=== PATIENT | male | born 1980 | race Caucasian/White ===

== ENCOUNTER 2021-02-11 14:16 | Outpatient (REF) | payer OTHER, SELFPAY | END 2021-02-11 14:17 | disposition home or self-care (01) | LOC: HO.LAB 14:16 | PROVIDERS: Visit Provider Internal Medicine | DX: Z20.822 Contact with and (suspected) exposure to COVID-19 (principal) | CPT/HCPCS: C9803; U0003; U0005 ==

== ENCOUNTER 2021-06-19 11:45 | Outpatient (REF) | payer OTHER, SELFPAY ==
--- NOTE | ~2021-06-19 | XR_ITS ---
EXAMINATION: XR SHOULDER, LEFT CLINICAL INFORMATION: Pain COMPARISON: None TECHNIQUE: AP external rotation, Grashey, scapular Y, and axillary views of the left shoulder. FINDINGS: The bones and soft tissues are normal. No fracture. Glenohumeral and acromioclavicular alignment is anatomic with normal joint space. No abnormal soft tissue calcifications. XR/XR shoulder LT min 2V IMPRESSION: Normal left shoulder.
[2021-06-19 12:03] LABS: MANUAL DIFF FLAG NO
--- NOTE | 2021-06-19 12:06 | ECG_ITS ---
Test Reason : Z87.898 Blood Pressure : / mmHG Vent. Rate : 058 BPM Atrial Rate : 058 BPM P-R Int : 190 ms QRS Dur : 092 ms QT Int : 408 ms P-R-T Axes : 045 -28 025 degrees QTc Int : 400 ms Sinus bradycardia Otherwise normal ECG No previous ECGs available Referred By: Onur Tsai Electronically Signed By:Jose Anderson
[2021-06-19 12:40] LABS: Basophils Absolute Auto 0.1 X10*3/uL (0.0-0.2); Basophils Percent Auto 0.6 % (0-2); Eosinophils Absolute Auto 0.3 X10*3/uL (0.0-0.4); Eosinophils Percent Auto 3.5 % (0-4); Hematocrit 46.3 % (42.0-52.0); Hemoglobin 15.2 g/dl (14.0-18.0); Imm Gran Abs Auto 0.03 X10*3/uL (0.00-0.03); Imm Gran Pct Auto 0.4 % (0.0-0.4); Lymphocytes Absolute Auto 1.6 X10*3/uL (1.2-4.9); Lymphocytes Percent Auto 19.9 % (20-40); Mean Corpuscular HGB Conc 32.8 g/dl (31.0-36.0); Mean Corpuscular Hemoglobin 29.2 pg (27.0-33.0); Mean Corpuscular Volume 88.9 fL (80.0-98.0); Mean Platelet Volume 11.5 fL (9.4-12.4); Monocytes Absolute Auto 0.6 X10*3/uL (0.1-1.2); Monocytes Percent Auto 7.2 % (2-11); Neutrophils Absolute Auto 5.3 x10*3/uL (2.0-8.3); Neutrophils Percent Auto 68.4 % (45-73); Platelet Count 270 X10*3/uL (160-400); Red Blood Count 5.21 X10*6/uL (4.60-5.80); Red Cell Distribution Width 12.4 % (11.0-16.0); White Blood Count 7.8 X10*3/uL (4.8-10.8)
[2021-06-19 13:05] LABS: Alanine Aminotransferase 28 U/L (0-40); Alkaline Phosphatase 91 U/L (39-117); Anion Gap 11 (12-20); Aspartate Amino Transferase 20 U/L (5-37); Bilirubin Total 0.5 mg/dL (0.0-1.0); Blood Urea Nitrogen 10 mg/dL (9-16); Calcium 9.4 mg/dL (8.4-10.2); Carbon Dioxide 24 mmol/L (22-29); Chloride 105 mmol/L (96-108); Cholesterol 154 mg/dL; Estimated Glomerular Filt Rate > 60; Glucose Fasting 155 mg/dL (60-99); HDL Cholesterol 32 mg/dL; LDL Cholesterol Calculated 107 mg/dl; Potassium 4.1 mmol/L (3.3-5.1); Sodium 136 mmol/L (135-145); Total Protein 6.9 g/dL (6.5-8.0); Triglycerides 77 mg/dL
== END 2021-06-19 11:46 | disposition home or self-care (01) ==
LOC: HO.XRAY 11:45
PROVIDERS: PCP Nurse Practitioner Family; Visit Provider Nurse Practitioner Family
DX: M25.512 Pain in left shoulder (principal); E78.00 Pure hypercholesterolemia, unspecified; I10 Essential (primary) hypertension; Z87.898 Personal history of other specified conditions
CPT/HCPCS: 36415; 73030; 80053; 80061; 85025; 93005

== ENCOUNTER → 2022-01-16 11:20 | Outpatient (BNVA) | payer OTHER, SELFPAY | PROVIDERS: PCP Nurse Practitioner Family; Visit Provider Physician Assistant | DX: M75.82 Other shoulder lesions, left shoulder (principal) | CPT/HCPCS: 20610; J1040 ==

== ENCOUNTER 2022-02-16 15:17 | Outpatient (REF) | payer OTHER, SELFPAY ==
--- NOTE | ~2022-02-16 | XR_ITS ---
EXAMINATION: XR KNEES, AP STANDING BOTH XR KNEE, LEFT CLINICAL INFORMATION: Left knee pain. COMPARISON: None TECHNIQUE: Bilateral AP knee standing. Left knee 2 views. FINDINGS: Bilateral AP Knee: The medial and lateral compartment joint space is maintained normal. No bony erosive change is seen. There are no loose bodies. The soft tissues are normal. Left Knee: The patellofemoral compartment joint space is maintained normal. No bony erosive changes. No suprapatellar joint effusion or soft tissue swelling. XR/XR knee LT 2V IMPRESSION: 1. Unremarkable AP knee exam. 2. Unremarkable left knee exam.
--- NOTE | ~2022-02-16 | XR_ITS ---
EXAMINATION: XR KNEES, AP STANDING BOTH XR KNEE, LEFT CLINICAL INFORMATION: Left knee pain. COMPARISON: None TECHNIQUE: Bilateral AP knee standing. Left knee 2 views. FINDINGS: Bilateral AP Knee: The medial and lateral compartment joint space is maintained normal. No bony erosive change is seen. There are no loose bodies. The soft tissues are normal. Left Knee: The patellofemoral compartment joint space is maintained normal. No bony erosive changes. No suprapatellar joint effusion or soft tissue swelling. XR/XR knee standing BI IMPRESSION: 1. Unremarkable AP knee exam. 2. Unremarkable left knee exam.
== END 2022-02-16 15:18 | disposition home or self-care (01) ==
LOC: HO.HOSX 15:17
PROVIDERS: Visit Provider Physician Assistant
DX: M25.562 Pain in left knee (principal); M75.82 Other shoulder lesions, left shoulder
CPT/HCPCS: 20610; 73560; 73565; J1040

== ENCOUNTER 2022-02-26 18:13 | Outpatient (REF) | payer OTHER, SELFPAY | END 2022-02-26 18:14 | disposition home or self-care (01) | LOC: HO.MRI 18:13 | PROVIDERS: Visit Provider Physician Assistant | DX: S46.002A Unspecified injury of muscle(s) and tendon(s) of the rotator cuff of left shoulder, initial encounter (principal) | CPT/HCPCS: 73221 ==

== ENCOUNTER → 2022-04-08 15:49 | Outpatient (BNVA) | payer OTHER, SELFPAY | PROVIDERS: PCP Nurse Practitioner Family; Visit Provider Physician Assistant | DX: Z13.89 Encounter for screening for other disorder (principal) ==

== ENCOUNTER 2022-05-28 11:00 | Outpatient (RCR) | payer OTHER, SELFPAY ==
--- NOTE | 2022-05-01 15:12 | MHC.PT.EP ---
[facility] [place] Office [place] Office [place] Office [address] Hayden Harper [address] [phone] F: [phone] F: [phone] F: [phone] F: [phone] Physical Therapy Plan of Care Date of Evaluation: Date of Surgery: Diagnosis: CHONDROMALACIA LEFT KNEE Assessment: 41 YO MALE REF TO PT W LEFT KNEE CHONDROMALACIA, EXACERBATED IN A FALL IN 02/16/22. 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 Pt HAS Lt KNEE TERMINAL EXTENSION DEFICITS, DECR FLEXIBILITY IN HIPS/ HS, (+) PFPS W INFRAPATELLAR FAT PAD IRRIT, DECR PROPRIOCEPTION/ STABILIZATION LEFT LE , AND LUMBOPELVIC/ PROX LEs STRENGTH DEFICITS. FUNCTIONALLY, Pt IS LIMITED W STAIR MGMT, PROLONGED SITTING, PROLONGED STANDING/ WALKING/ SQUATTING, OR SITTING CROSS-LEGGED. Pt IS MOTIVATED FOR PT AND HE WOULD BENEFIT FROM PT TO ADDRESS THE ABOVE FINDINGS, DEV A HEP, IMPROVE LEFT KNEE JT MECH/ PERIPATELLAR SOFT TISSUE BALANCE, PAIN MGMT, AND SX MGMT TECHN. Frequency and Duration: The patient will be seen 2 x WK x 6 WKS Short Term Goals: *Pt'S LEFT KNEE PAIN DECR TO 2-3/10 *Pt INCREASE Lt KNEE ROM -> 0* EXTEN AND PROGRESSIVELY TO 120* FLEX *INCR FLEXINB IN PSOAS/ CALF MM TO IMPROVE EFFICIENCY OF GAIT ON LEVEL AND STAIRS *IMPROVE Pt'S SQUAT MECH Miter Cutter Goals: Pt INDEP W HEP PROGRESSION AND SELF-SX MGMT STRATEGIES IN 6 WKS Pt RESUME REG ADLs EVIDENT W IMPROVED LEFI SCORE BY 8-10 POINTS (AT EVAL 37/80 ) IN 6 WKS Pt INCR LUMBOPELVIC AND Lt LE STRENGTH BY 1 GRADE IN 6 WKS *Pt DEMON WFL SQUAT / BODY MECH W 3:3 SIMUL TASKS Treatment Plan: Modalities to reduce pain, spasms and effusion. Manual therapy to restore motion and function. Therapeutic exercise to improve strength and flexibility. Neuromuscular re-education for posture and balance. Therapeutic activities to return to functional activities of daily living. Electronically signed by: GINGER AGUIRRE PT Please sign and return to therapist. Thank you for your referral.
--- NOTE | 2022-07-06 09:06 | MHC.PT.DC ---
[facility] [place] Office [place] Office [place] Office [address] Hayden Harper 140 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 THE Pt DID NOT ATTEND HIS LAST FEW SCHED PT APPTS, AND, THEREFORE, A REASSESSMENT WAS NOT PERFORMED. Electronically signed by: GINGER AGUIRRE,PT Please sign and return to therapist. Thank you for your referral.
== END 2022-07-06 09:07 | disposition home or self-care (01) ==
LOC: HO.PT 11:00
PROVIDERS: PCP Nurse Practitioner Family; Visit Provider Physician Assistant
DX: M94.262 Chondromalacia, left knee (principal)
CPT/HCPCS: 97110; 97140; 97162

== ENCOUNTER → 2022-06-08 11:35 | Outpatient (BNVA) | payer OTHER, SELFPAY | PROVIDERS: PCP Nurse Practitioner Family; Visit Provider Physician Assistant | DX: Z13.89 Encounter for screening for other disorder (principal) ==

== ENCOUNTER 2022-07-02 13:51 | Outpatient (REF) | payer OTHER, SELFPAY ==
--- NOTE | ~2022-07-02 | MR_ITS ---
EXAMINATION: MR KNEE WITHOUT CONTRAST, LEFT CLINICAL INFORMATION: Left knee pain, osteoarthritis COMPARISON: Radiographs 02/16/2022 TECHNIQUE: MRI of the knee without contrast was performed using routine sequences on a high-field scanner. FINDINGS: MENISCI: Medial Meniscus: Intact Lateral Meniscus: Intact LIGAMENTS: Cruciate: Intact Collateral: Intact EXTENSOR MECHANISM: Intact ARTICULAR CARTILAGE/BONE: Patellofemoral Compartment: Normal Medial Compartment: Mild cartilage thinning and surface regular tearing along the lateral aspect of the weightbearing femoral condyle. Lateral Compartment: Normal JOINT FLUID AND BURSAE: Small joint effusion. MR/MR knee LT wo con IMPRESSION: 1. No meniscal tear. 2. Mild medial compartment osteoarthritis with a small joint effusion.
== END 2022-07-02 13:52 | disposition home or self-care (01) ==
LOC: HO.MRI 13:51
PROVIDERS: PCP Nurse Practitioner Family; Visit Provider Physician Assistant
DX: M17.12 Unilateral primary osteoarthritis, left knee (principal)
CPT/HCPCS: 73721

== ENCOUNTER 2022-07-20 07:22 | Emergency (ER) | payer OTHER, SELFPAY ==
[2022-07-20 07:34] VITALS: BP 116/74; BP 122/82; PULSE 70; PULSE 88; RESP 18; TEMP 36.7; O2SAT 95; O2SAT 97; BMI 35.3
[2022-07-20 07:39] VITALS: BP 116/74; PULSE 88; RESP 18; TEMP 36.7; O2SAT 97
--- NOTE | 2022-07-20 07:41 | ED_ITS ---
HPI - Back Pain/Injury General Chief Complaint: Back Pain/Injury Stated Complaint: L HIP PAIN WHILE LIFTING HEAVY OBJECT Time Seen by Provider: 07/20/22 07:28 Source: patient Mode of arrival: EMS History of Present Illness HPI Narrative: 41-year-old male with chronic back pain arrives via EMS after trying to lift up 2 lb box while working for [employer] and states that he felt a pinch in his left hip but denies any distal numbness/tingling but stated he felt like his leg might give out but it did not. Patient has left knee issues at baseline for which she is currently being worked up by orthopedics for. He recently had an MRI. Related Data Home Medications Medication Instructions Recorded Confirmed amoxicillin 500 mg capsule 500 mg PO TID 04/08/22 chlorhexidine gluconate 0.12 % 15 ml PO BID 04/08/22 mouthwash Previous Rx's Medication Instructions Recorded clotrimazole 1 % topical cream 1 appl topical BID PRN rash 2 12/09/21 (Antifungal (clotrimazole)) weeks #15 grams ketorolac 10 mg tablet 10 mg PO Q6H PRN pain 5 days #20 07/20/22 tabs Allergies Allergy/AdvReac Type Severity Reaction Status Date / Time bee pollen Allergy Intermediate Hives Verified 02/16/22 15:14 Review of Systems Review of Systems: Pertinent positives and negatives as stated in HPI PMFSH Past Medical History Source: nursing notes reviewed Medical History History of chest pain Surgical History History of cholecystectomy History of rotator cuff surgery Hx of tooth extraction Family History Family History Mother Lung cancer COPD (chronic obstructive pulmonary disease) Father Diabetes COPD (chronic obstructive pulmonary disease) Other Substance use disorder Social History Social History Housing: House Alcohol intake: current Alcohol intake frequency: a few times a month Alcohol type: beer Patient Tobacco Use Status: Current someday Tobacco user Tobacco use type: Cigar Smoked in Last 30 Days: Yes e-Cigarette/Vaping Use: Never Used Second Hand Smoke Exposure: No Substance Use Type: Other Substance Use Type Other:: cbd gummies Substance Use Frequency: Occasionally Last Used Substance: Days (ago) Any prior treatment program specific to substance use: No Advance Directives: No Advance Directives Information Provided: Yes service: No Current occupational status: employed 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 GENERAL: Well developed, well nourished, in no acute distress. HEAD: Normocephalic/atraumatic EYES: PERRLA, EOMI EARS: Ext canals without abnormality OROPHARYNX: no oral lesions noted, posterior pharynx clear LUNGS: Normal breath sounds. No adventitious sounds or accessory muscle use. SpO2<97> CARDIOVASCULAR: Regular rate and rhythm without noted murmurs ABDOMEN: Soft, non-tender, non-distended with bowel sounds. BACK: There is no midline vertebral tenderness or step-offs noted, there is specific tenderness over the left superior gluteus without obvious mass/erythema. MUSCULOSKELETAL: No tenderness, deformities, or effusions noted on gross inspection. EXTREMITIES: No cyanosis, clubbing or edema;LLE: Tenderness to palpation over the left greater trochanter extending down over the IT distribution, full range of motion with hip flexion, knee flexion (patient has a knee sleeve), ankle Dorsi and plantar flexion. SKIN: Inspection of the skin reveals no rashes NEUROLOGIC: Alert and oriented x 4. Strength and sensation to light touch were grossly intact x 4, DTRs intact. Medical Decision Making Medical Decision Making MDM Narrative: 41-year-old male with history and clinical presentation most consistent with possible muscle strain, no evidence to suggest sciatica or vertebral involvement, the package was 2 lb, there is no evidence of neurologic dysfunction and patient has some limited ROM due to underlying knee problem for which she is currently being evaluated. There is no evidence to suggest infection/abscess/cauda equina. Differential Diagnosis Please see the discussion above Discharge Plan Discharge Clinical Impression: Muscle strain of left gluteal region, Acute exacerbation of chronic low back pain Patient Disposition: Home, Self-Care Instructions: Muscle Strain (ED), Low Back Strain (ED), Lower Back Exercises (ED), Core Strengthening Exercises (ED) Additional Instructions: 1. Resume all home medications as prescribed. 2. Tylenol 1000 mg, orally, every 6 hours as needed for pain control. Do not exceed 4000 mg within 24 hours. I recommend that you take this medication with the prescribed Toradol. Also, recommend [id number] lidocaine patch to area of maximal tenderness as directed on the outside packaging. 3. Follow-up with your primary care provider as you will likely benefit from physical therapy. 4. Follow-up with orthopedics as scheduled, please call them for an appointment. Return to the ER for any worsening symptoms. Prescriptions: New ketorolac 10 mg tablet 10 mg PO Q6H PRN (Reason: pain) 5 Days Qty: 20 0RF Rx Instructions: Patient received Toradol in the emergency room. Discontinued ibuprofen 600 mg tablet PO No Action clotrimazole [Antifungal (clotrimazole)] 1 % cream 1 appl topical BID PRN (Reason: rash) 14 Days Qty: 15 0RF amoxicillin 500 mg capsule 500 mg PO TID chlorhexidine gluconate 0.12 % mouthwash 15 ml PO BID Stand Alone Forms: Work/School Release
--- NOTE | 2022-07-20 07:42 | PC.NURSE ---
Alert and oriented. Arrived by ems from work after reaching down to lift up a small 2lb bag. [place] suddent sharp pain in left hip and left knee almost gave out. Reports left knee pain has been going on for 20 years but hip pain is new. States had mri two weeks ago and is waiting for the results. VSS.
[2022-07-20] MEDS: Acetaminophen 325 MG TABLET 975 MG PO (08:04)
[2022-07-20] MEDS: Ketorolac Tromethamine 15 MG/ML VIAL IM (08:05)
[2022-07-20] MEDS: Lidocaine 4 % Patch ADH..PATCH 1 PATCH TRANSDERMA (08:05)
== END 2022-07-20 09:14 | disposition home or self-care (01) ==
PROVIDERS: Emergency Provider Student in an Organized Health Care Education/Training Program
DX: S79.912A Unspecified injury of left hip, initial encounter (principal); M25.552 Pain in left hip; M54.50 Low back pain, unspecified; F17.200 Nicotine dependence, unspecified, uncomplicated; X50.0XXA Overexertion from strenuous movement or load, initial encounter; X50.3XXA Overexertion from repetitive movements, initial encounter; X50.9XXA Other and unspecified overexertion or strenuous movements or postures, initial encounter; Y93.9 Activity, unspecified; Y92.9 Unspecified place or not applicable; Y99.0 Civilian activity done for income or pay; Z71.6 Tobacco abuse counseling; Z79.899 Other long term (current) drug therapy
CPT/HCPCS: 20610; 96372; 99284; J1040; J1885

== ENCOUNTER 2022-07-28 10:53 | Outpatient (REF) | payer OTHER, SELFPAY ==
--- NOTE | ~2022-07-28 | XR_ITS ---
EXAMINATION: XR HIP, LEFT CLINICAL INFORMATION: Pain COMPARISON: None available. TECHNIQUE: Two views of the left hip. FINDINGS: Bones and soft tissues are normal. No fracture. Alignment is anatomic. Hip joint space is maintained. XR/XR hip LT min 2V IMPRESSION: Normal left hip.
[2022-07-28 12:14] LABS: Estimated Average Glucose 140 mg/dL; Hemoglobin A1c % 6.5 %
[2022-07-28 12:15] LABS: Alanine Aminotransferase 30 U/L (0-40); Albumin Level 4.1 g/dL (3.5-5.0); Alkaline Phosphatase 100 U/L (39-117); Anion Gap 12 (12-20); Aspartate Amino Transferase 18 U/L (5-37); Bilirubin Total 0.8 mg/dL (0.0-1.0); Blood Urea Nitrogen 15 mg/dL (9-16); Calcium 9.4 mg/dL (8.4-10.2); Carbon Dioxide 25 mmol/L (22-29); Chloride 106 mmol/L (96-108); Estimated Glomerular Filt Rate > 60; Glucose Fasting 143 mg/dL (60-99); Potassium 4.4 mmol/L (3.3-5.1); Sodium 139 mmol/L (135-145); Total Protein 6.8 g/dL (6.5-8.0)
[2022-07-28 12:46] LABS: Folate 5.6 ng/mL (> or = 4.0); TSH reflex Free T4 0.72 uIU/mL (0.32-4.0); Vitamin B12 475 pg/mL (200-900); Vitamin D 25-OH Total 12.5 ng/mL (>30)
== END 2022-07-28 10:54 | disposition home or self-care (01) ==
LOC: HO.LAB 10:53
PROVIDERS: Visit Provider Nurse Practitioner Family
DX: M25.552 Pain in left hip (principal); R73.01 Impaired fasting glucose; Z13.29 Encounter for screening for other suspected endocrine disorder; M25.512 Pain in left shoulder; E55.9 Vitamin D deficiency, unspecified; E11.9 Type 2 diabetes mellitus without complications
CPT/HCPCS: 36415; 73502; 80053; 82306; 82607; 82746; 83036; 84443

== ENCOUNTER 2022-10-05 14:58 | Outpatient (AMB) | payer OTHER, SELFPAY ==
--- NOTE | 2022-10-05 15:09 | MHC.OFFVIS ---
Intake Vital Signs 10/05/22 15:10 Height 6 ft Weight 266 lb BMI 36.1 Intake Visit Reasons: OV-Left knee pain Intake Note: Ivan reyes 41 year old male presents today for?a follow up of left knee pain, last injection 07/20/22. Patient reports last injection provided relief for about a day. He has not been able to attend PT and is not able to attend with out a new order. Currently has steady pain that gets worse with bending of knee. Pain and tingling sensation that is located at the anterior aspect of knee. He has been out of work due to his pain for about a month. Finds no relief with Ibuprofen or Tylenol. Finds little relief with Advil. Finds support with knee brace. Allergies bee pollen Allergy (Intermediate, Verified 10/05/22 15:10) Hives HPI OV-Left knee pain HPI Details 41-year-old male who returns to the office today for a follow-up of left knee pain. He states he has steady pain and tingling sensation at the anterior aspect of his left knee which is aggravated with bending. He had his last injection on 07/20/22 which provided him relief for about a day. He has not been able to attend physical therapy as he missed an appt. He finds mild relief with Advil and no relief with ibuprofen or Tylenol. He finds support with his knee brace. He works at an [employer] in [place] and has been out of work due to his pain for about a month. [facility] Medical History Encounter to establish care History of chest pain Surgical History History of cholecystectomy History of rotator cuff surgery Hx of tooth extraction Family History Mother Lung cancer COPD (chronic obstructive pulmonary disease) Father Diabetes COPD (chronic obstructive pulmonary disease) Other Substance use disorder Social History Housing: House Alcohol intake: current Alcohol intake frequency: a few times a month Alcohol type: beer Patient Tobacco Use Status: Current someday Tobacco user Tobacco use type: Cigar e-Cigarette/Vaping Use: Never Used Second Hand Smoke Exposure: No Substance Use Type: Other service: No Current occupational status: employed 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 Retropatellar tenderness present. ROM full with crepitus. Negative steinmans. No ligamentous laxity. NVI. Assessment & Plan Assessment & Plan (1) Chondromalacia, left knee: Code(s): M94.262 - Chondromalacia, left knee (2) Patellofemoral arthritis of left knee: Code(s): M17.12 - Unilateral primary osteoarthritis, left knee Plan We discussed options which include referral back to physical therapy, pain management for geniculate injection and referral for gel injection. With his patellofemoral arthritis and anterior knee pain, I think that these are things that may help him with managing his discomfort along with activity modifications. He will return to work on October 09. He should avoid any type of repetitive kneeling, bending, pivoting or squatting type of motions for the next 4 weeks. He was also given a prescription of Celebrex to take twice a day for 2 weeks. He will see me back if he wishes to proceed with gel injection once approved. Orders: Orders PT Evaluation and Treatment Today M17.12 - Unilateral primary osteoarthritis, left knee, M94.262 - Chondromalacia, left knee Referrals Pain Management Referral M17.12 - Unilateral primary osteoarthritis, left knee, M94.262 - Chondromalacia, left knee Medications: New celecoxib (Celebrex) 200 mg PO BID 60 caps 3RF 30 days Patient Instructions: Scribed for Deborah Cervantes PA-C, by Aldo Gallegos medical insurance coding specialist, on 10/05/2022 at 3:00 PM EST. IDeborah PA-C, have personally reviewed and agree with the information entered by the scribe. Coding Level of Care Code Est Pt Level 3 (39470) Diagnoses Chondromalacia, left knee M94.262 Patellofemoral arthritis of left knee M17.12
[2022-10-05 15:10] VITALS: BMI 36.1
== END 2022-10-05 15:48 | disposition home or self-care (01) ==
PROVIDERS: PCP Nurse Practitioner Family; Visit Provider Physician Assistant
DX: M94.262 Chondromalacia, left knee (principal); M17.12 Unilateral primary osteoarthritis, left knee
CPT/HCPCS: 99213

== ENCOUNTER → 2022-10-05 14:58 | Outpatient (BNVA) | payer OTHER, SELFPAY | PROVIDERS: PCP Nurse Practitioner Family; Visit Provider Physician Assistant ==

== ENCOUNTER 2022-11-04 11:25 | Outpatient (AMB) | payer OTHER, SELFPAY ==
[2022-11-04 11:26] VITALS: BP 112/80; PULSE 61; O2SAT 98; BMI 35.4
--- NOTE | 2022-11-04 11:26 | A.OFFPC_ITS ---
Vital Signs 11/04/22 11:26 Height 6 ft Weight 261 lb BMI 35.4 BP 112/80 Blood Pressure Location Lt brachial Position Sitting Pulse 61 Pulse Source Pulse Oximeter Temp Source Skin Pulse Oximetry (%) 98 Oxygen Delivery Method Room Air Intake Visit Reasons: Neuropathy On Foot Intake Note: pt states care home right foot pain, neuropathy Environmental Director Required: No Allergies bee pollen Allergy (Intermediate, Verified 11/04/22 11:33) Hives Medication List - Last Reconciled 11/04/22 by GALILEA Henley blood sugar diagnostic (FreeStyle Lite Strips) test daily blood-glucose meter (FreeStyle Lite Meter kit) test daily celecoxib (Celebrex) 200 mg PO BID 30 days chlorhexidine gluconate 0.12% 15 mL PO BID cholecalciferol (vitamin D3) 50 mcg PO DAILY clotrimazole 1% (Antifungal (clotrimazole)) 1 appl topical BID PRN 2 weeks cyclobenzaprine 5 mg PO BEDTIME PRN ibuprofen 600 mg PO Q8H PRN lancets (FreeStyle Lancets) test daily metformin ER 500 mg PO DAILY Tobacco use date assessed: 11/04/22 Dental Screening Dental Screen Date: 11/04/22 Did you have a dental visit in the last 12 months?: Yes Did you have a dental problem in the last 6 months where you did not have access to dental care?: No Was dental information given to patient?: Patient has dentist HPI Neuropathy On Foot HPI Details Patient is a 41-year-old male who presents today for an office visit due to right foot pain on and off for a while now. Medical history significant for obesity, left knee pain, diabetes among others. Patient reports that about 12 years ago he did have right foot injury, he did not see provider then. He reports he went back to work, on feet for work. Reports towards the end of the day pain in right foot plantar aspect. Reports when pain is severe he has some numbness there as well. Pain is not to bad now. Reports taking ibuprofen with some improvement. Denies problems with his left foot. Reports that right foot pain improves with rest. Describes pain as sharp intermittent. [facility] Medical History Encounter to establish care History of chest pain Surgical History History of cholecystectomy History of rotator cuff surgery Hx of tooth extraction Family History Mother Lung cancer COPD (chronic obstructive pulmonary disease) Father Diabetes COPD (chronic obstructive pulmonary disease) Other Substance use disorder Social History Housing: House Alcohol intake: current Alcohol intake frequency: a few times a month Alcohol type: beer Patient Tobacco Use Status: Current someday Tobacco user Tobacco use type: Cigar e-Cigarette/Vaping Use: Never Used Second Hand Smoke Exposure: No Substance Use Type: Other service: No Current occupational status: employed Current occupation: [employer]/ [employer] Cognitive needs: No Hearing needs: No Vision needs: Yes (glasses) Questionnaire Thrive Questionnaire Date Thrive assessed: 07/24/22 AUDIT C Alcohol Use Questionnaire (AUDIT-C) 1. How often do you have a drink containing alcohol?: Monthly or less 2. How many drinks containing alcohol do you have on a typical day when you are drinking?: 1 or 2 3. How often do you have six or more drinks on one occasion?: Never Total Score: 1 Score Reviewed/Action Taken: No LAMAR-7 AMB Questionnaire LAMAR-7 Date LAMAR - 7 assessed: 09/10/22 Source: Developed by Drs. Patricio Chirinos, Silvia Trivedi, Mahad Mckinney and colleagues, with an educational davy from [employer]. Review of Systems Const Denies body aches, Denies chills, Denies fever(s) and Denies headache(s) Eyes Denies change in vision ENT Denies dizziness, Denies otalgia, Denies headache(s), Denies nasal discharge, Denies sinus pain and Denies sore throat Card Denies chest pain, Denies edema, Denies lightheadedness and Denies dyspnea Resp Denies cough and Denies dyspnea GI Denies abdominal pain Denies dysuria Musc Reports as per HPI, Denies myalgias, Reports arthralgias, Reports numbness and Denies tingling Skin/Breast Denies rash Neuro Denies dizziness, Denies headache(s), Reports numbness and Denies tingling Physical exam (Primary Care) Vital Signs: Last Vital Signs Pulse 61 11/04/22 11:26 BP 112/80 11/04/22 11:26 Pulse Ox 98 11/04/22 11:26 Oxygen Delivery Method Room Air 11/04/22 11:26 BMI result Body Mass Index 35.4 Tobacco/Smoking Status: Tobacco use Status Tobacco use date assessed 11/04/22 11/04/22 11:27 Patient Tobacco Use Status Current someday Tobacco 11/04/22 11:27 Tobacco use type Cigar 11/04/22 11:27 e-Cigarette/Vaping Use Never Used 11/04/22 11:27 Thrive Assessment: Date of Thrive Assessment Date Thrive assessed 07/24/22 11/04/22 11:27 Const General: cooperative and no acute distress Orientation/consciousness: patient oriented x3 HENMT Head: Yes normocephalic and Yes atraumatic Mouth: oropharynx normal and moist mucous membranes Throat: Yes posterior oropharynx normal Eyes General: appearance normal, both eyes and all related structures Neck Neck: Yes normal visual inspection and Yes full ROM Resp Effort & Inspection: normal respiratory effort and able to speak in complete sentences Auscultation: clear to auscultation bilaterally, no crackles, no rales, no rhonchi and no wheezes Cardio Rate: regular rate Rhythm: regular rhythm Heart sounds: S1 normal heart sound present and S2 normal heart sound present Peripheral pulses: dorsalis pedis present on the right GI Auscultation: normal bowel sounds Skin General skin exam: no rashes or lesions noted Neuro General: patient oriented x3 Gait exam (Neuro): Normal gait present Extrem Other: Right foot normal capillary refill General: Yes full ROM and No edema Right lower extremity: foot Details: normal capillary refill, tenderness Location: of the plantar foot Location: proximally and toes with normal ROM; no unusual warmth, no edema and no crepitus Assessment and Plan Assessment & Plan (1) Plantar fasciitis of right foot: Code(s): M72.2 - Plantar fascial fibromatosis Plan: Suspect plantar fasciitis of right foot. Patient is to continue ibuprofen 600 mg every 8 hours p.r.n.. Encouraged patient to do exercises with frozen ice bottle. Podiatry referral for an evaluation and treatment. Patient agreed with the plan. Keep appointment with PCP as scheduled or follow-up sooner as needed. Orders: Referrals Podiatry Referral M72.2 - Plantar fascial fibromatosis Coding Level of Care Code Est Pt Level 3 (58263) Diagnoses Plantar fasciitis of right foot M72.2
== END 2022-11-04 11:43 | disposition home or self-care (01) ==
PROVIDERS: PCP Nurse Practitioner Family; Visit Provider Nurse Practitioner Family
DX: M72.2 Plantar fascial fibromatosis (principal)
CPT/HCPCS: 99213

== ENCOUNTER 2022-11-05 14:55 | Outpatient (AMB) | payer OTHER, SELFPAY ==
--- NOTE | 2022-11-05 15:11 | A.OFFVIS_ITS ---
Intake Vital Signs 11/05/22 15:12 Height 6 ft Weight 261 lb BMI 35.4 Intake Visit Reasons: OV- LT knee gel monovisc injection Intake Note: Ivan a 41 year old male who presents today for a left knee monovisc injection. Allergies bee pollen Allergy (Intermediate, Verified 11/05/22 15:12) Hives HPI OV- LT knee gel monovisc injection HPI Details 41-year-old male who returns to the office today for a follow-up of left knee monovisc gel injection. [facility] Medical History Encounter to establish care History of chest pain Surgical History History of cholecystectomy History of rotator cuff surgery Hx of tooth extraction Family History Mother Lung cancer COPD (chronic obstructive pulmonary disease) Father Diabetes COPD (chronic obstructive pulmonary disease) Other Substance use disorder Social History Housing: House Alcohol intake: current Alcohol intake frequency: a few times a month Alcohol type: beer Patient Tobacco Use Status: Current someday Tobacco user Tobacco use type: Cigar e-Cigarette/Vaping Use: Never Used Second Hand Smoke Exposure: No Substance Use Type: Other service: No Current occupational status: employed 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 Retropatellar tenderness present. ROM full with crepitus. Negative steinmans. No ligamentous laxity. NVI. Office Procedures Joint Injection/Drain Joint Injection/Drain Details: Monovisc gel Primary Site: left knee Prep: site was prepped using aseptic technique, ethochloride spray was applied and injection warnings given Injected: in the joint Approach Used: anterolateral Procedure: The patient tolerated the procedure well Coding 94386 - Glenohumeral/Tronchanteric Bursa/Intraarticular Procedure code (CPT) selection complete Assessment & Plan Assessment & Plan (1) Chondromalacia, left knee: Code(s): M94.262 - Chondromalacia, left knee (2) Patellofemoral arthritis of left knee: Code(s): M17.12 - Unilateral primary osteoarthritis, left knee Plan We discussed options today which include monovisc injection. They did consent to move forward with the left knee monovisc injection, which was tolerated well. I recommended rest, ice and elevation and OTC anti-inflammatories PRN for discomfort. If symptoms persist or worsens over the next 6-8 weeks, patient will contact the office, otherwise follow-up as needed. Patient Instructions: Scribed for Deborah Cervantes PA-C, by Aldo Gallegos internist medical doctor md, on 11/05/2022 at 3:00 PM EST. I, Deborah Cervantes PA-C, have personally reviewed and agree with the information entered by the scribe. Coding Level of Care Code Procedure Only Diagnoses Chondromalacia, left knee M94.262 Patellofemoral arthritis of left knee M17.12 CPT Codes Coding - Joint 7: 35085 - Glenohumeral/Tronchanteric Bursa/Intraarticular ([id number])
[2022-11-05 15:12] VITALS: BMI 35.4
== END 2022-11-05 15:17 | disposition home or self-care (01) ==
PROVIDERS: PCP Nurse Practitioner Family; Visit Provider Physician Assistant
DX: M94.262 Chondromalacia, left knee (principal); M17.12 Unilateral primary osteoarthritis, left knee
CPT/HCPCS: 20610

== ENCOUNTER → 2022-11-05 14:55 | Outpatient (BNVA) | payer OTHER, SELFPAY | PROVIDERS: PCP Nurse Practitioner Family; Visit Provider Physician Assistant | DX: M17.12 Unilateral primary osteoarthritis, left knee (principal); M94.262 Chondromalacia, left knee | CPT/HCPCS: 20610; J7327 ==

== ENCOUNTER 2022-12-07 14:17 | Outpatient (AMB) | payer OTHER, SELFPAY ==
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
[2022-12-07 14:23] VITALS: BP 103/70; PULSE 65; RESP 14; O2SAT 98; BMI 35.7
== END 2022-12-07 14:41 | disposition home or self-care (01) ==
PROVIDERS: PCP Nurse Practitioner Family; Visit Provider Internal Medicine
DX: M25.562 Pain in left knee (principal); G89.29 Other chronic pain
CPT/HCPCS: 99204

== ENCOUNTER → 2022-12-07 14:17 | Outpatient (BNVA) | payer OTHER, SELFPAY | PROVIDERS: PCP Nurse Practitioner Family; Visit Provider Internal Medicine ==

== ENCOUNTER 2022-12-15 15:09 | Outpatient (AMB) | payer OTHER, SELFPAY ==
--- NOTE | 2022-12-15 15:21 | MHC.PC.OV ---
Vital Signs 12/15/22 15:22 Height 6 ft Weight 268 lb BMI 36.3 BP 112/80 Blood Pressure Location Lt brachial Position Sitting Pulse 61 Pulse Source Pulse Oximeter Temp Source Skin Pulse Oximetry (%) 99 Oxygen Delivery Method Room Air Intake Visit Reasons: 3 month f/u Allergies bee pollen Allergy (Intermediate, Verified 12/15/22 15:38) Hives Medication List - Last Reconciled 12/15/22 by GALILEA Henley blood sugar diagnostic (FreeStyle Lite Strips) test daily blood-glucose meter (FreeStyle Lite Meter kit) test daily celecoxib (Celebrex) 200 mg PO BID 30 days chlorhexidine gluconate 0.12% 15 mL PO BID cholecalciferol (vitamin D3) 50 mcg PO DAILY clotrimazole 1% (Antifungal (clotrimazole)) 1 appl topical BID PRN 2 weeks cyclobenzaprine 5 mg PO BEDTIME PRN ibuprofen 600 mg PO Q8H PRN lancets (FreeStyle Lancets) test daily metformin ER 500 mg PO DAILY Tobacco use date assessed: 12/15/22 Dental Screening Dental Screen Date: 12/15/22 Did you have a dental visit in the last 12 months?: Yes Did you have a dental problem in the last 6 months where you did not have access to dental care?: No Was dental information given to patient?: Patient has dentist HPI 3 month f/u HPI Details Patient is a 42-year-old male who presents today for an office visit to follow-up on diabetes. Medical history significant for obesity, diabetes, low vitamin-D level, left knee pain-followed by [place] pain management. Patient reports that he is compliant with metformin. No shortness of breath or chest pain. Patient was referred to Podiatry due to plantar fasciitis of right foot although he was not seen yet, will follow-up on this referral. [facility] Medical History History of chest pain Encounter to establish care Surgical History Hx of tooth extraction History of rotator cuff surgery History of cholecystectomy Family History Mother Lung cancer COPD (chronic obstructive pulmonary disease) Father Diabetes COPD (chronic obstructive pulmonary disease) Other Substance use disorder Social History Housing: House Alcohol intake: current Alcohol intake frequency: a few times a month Alcohol type: beer Patient Tobacco Use Status: Current someday Tobacco user Tobacco use type: Cigar e-Cigarette/Vaping Use: Never Used Second Hand Smoke Exposure: No Substance Use Type: Other service: No Current occupational status: employed 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 How often do you have a drink containing alcohol?: Monthly or less 2. How many drinks containing alcohol do you have on a typical day when you are drinking?: 1 or 2 3. How often do you have six or more drinks on one occasion?: Never Total Score: 1 Score Reviewed/Action Taken: No LAMAR-7 AMB Questionnaire LAMAR-7 Date LAMAR - 7 assessed: 09/10/22 Source: Developed by Drs. Patricio Chirinos, Silvia Trivedi, Mahad Mckinney and colleagues, with an educational davy from [employer]. Review of Systems Const Denies body aches, Denies chills, Denies fever(s) and Denies headache(s) Eyes Denies change in vision ENT Denies dizziness, Denies otalgia, Denies headache(s), Denies nasal discharge, Denies sinus pain and Denies sore throat Card Denies chest pain, Denies edema, Denies lightheadedness and Denies dyspnea Resp Denies cough and Denies dyspnea GI Denies abdominal pain Denies dysuria Musc Denies myalgias, Reports arthralgias, Reports numbness and Denies tingling Skin/Breast Denies rash Neuro Denies dizziness, Denies headache(s), Reports numbness and Denies tingling Physical exam (Primary Care) Vital Signs: Last Vital Signs Pulse 61 12/15/22 15:22 BP 112/80 12/15/22 15:22 Pulse Ox 99 12/15/22 15:22 Oxygen Delivery Method Room Air 12/15/22 15:22 BMI result Body Mass Index 36.3 Tobacco/Smoking Status: Tobacco use Status Tobacco use date assessed 12/15/22 12/15/22 15:26 Patient Tobacco Use Status Current someday Tobacco 12/15/22 15:23 Tobacco use type Cigar 12/15/22 15:23 e-Cigarette/Vaping Use Never Used 12/15/22 15:23 Thrive Assessment: Date of Thrive Assessment Date Thrive assessed 07/24/22 12/15/22 15:23 Const General: cooperative and no acute distress Orientation/consciousness: patient oriented x3 HENMT Head: Yes normocephalic and Yes atraumatic Mouth: oropharynx normal and moist mucous membranes Throat: Yes posterior oropharynx normal Eyes General: appearance normal, both eyes and all related structures Neck Neck: Yes normal visual inspection and Yes full ROM Resp Effort & Inspection: normal respiratory effort and able to speak in complete sentences Auscultation: clear to auscultation bilaterally, no crackles, no rales, no rhonchi and no wheezes Cardio Rate: regular rate Rhythm: regular rhythm Heart sounds: S1 normal heart sound present and S2 normal heart sound present GI Auscultation: normal bowel sounds Skin General skin exam: no rashes or lesions noted Neuro General: patient oriented x3 Gait exam (Neuro): Normal gait present Extrem General: Yes full ROM and No edema Results AMB Hemoglobin A1c AMB Hemoglobin A1c 6.5 % Last Edit by RUSTAM Josue on 12/15/22 15:30 Results Reviewed Results Reviewed: Laboratory Last Values Hgb A1c (Clinic) 6.5 % (4.0-6.0) H 12/15/22 15:21 Assessment and Plan Assessment & Plan (1) Diabetes mellitus, new onset: Code(s): E11.9 - Type 2 diabetes mellitus without complications Plan: A1c 6.5 today Continue metformin 500 mg daily Low carbohydrate diet and weight loss Diabetic eye exam 10/2022 (2) Obesity (BMI 30-39.9): Code(s): E66.9 - Obesity, unspecified Plan: Healthy food choices and exercise as tolerated Not interested in dietitian referral at this time (3) Low vitamin D level: Code(s): R79.89 - Other specified abnormal findings of blood chemistry Plan: Continue vitamin D3 50 mcg daily Has blood work order to recheck vitamin-D level Plan Follow-up in 4 months or sooner as needed Orders: Orders AMB Hemoglobin A1c Today E11.9 - Type 2 diabetes mellitus without complications Comprehensive [place]. Panel Fast Today E11.9 - Type 2 diabetes mellitus without complications Microalbumin, Random (w Creat) Today E11.9 - Type 2 diabetes mellitus without complications Coding Level of Care Code Est Pt Level 3 (71544) Diagnoses Diabetes mellitus, new onset E11.9 Obesity (BMI 30-39.9) E66.9 Low vitamin D level R79.89
[2022-12-15 15:22] VITALS: BP 112/80; PULSE 61; O2SAT 99; BMI 36.3
== END 2022-12-15 15:48 | disposition home or self-care (01) ==
PROVIDERS: PCP Nurse Practitioner Family; Visit Provider Nurse Practitioner Family
DX: E11.9 Type 2 diabetes mellitus without complications (principal); E66.9 Obesity, unspecified; R79.89 Other specified abnormal findings of blood chemistry; Z68.36 Body mass index [BMI] 36.0-36.9, adult
CPT/HCPCS: 83036; 99213

== ENCOUNTER 2022-12-24 14:00 | Outpatient (RCR) | payer OTHER, SELFPAY ==
--- NOTE | 2022-12-07 15:00 | MHC.PT.EP ---
[facility] [place] [facility] [place] [facility] [place] [facility] [address] Hayden Harper [address] [phone] F: [phone] F: [phone] F: [phone] F: [phone] Physical Therapy Plan of Care Date of Evaluation: 12/07/22 Date of Surgery: Diagnosis: LEFT KNEE (KP) Assessment: MARY IS A PLEASANT 42 YO MALE WHO PRESENTS WITH LEFT SIDED KNEE PAIN. HE HAD PREVIOUSLY SEEN HERE FOR THERAPY IN JULY WITH GINGER BUT WAS DCed FOR NON-COMPLIANCE. (OF NOTE, HE HAS ALSO NO SHOWED FOR 4 PT EVALUATIONS). HE NOW RETURNS WITH CONTINUED KNEE PAIN. HE REPORTS PAIN INCREASES WITH WALKING GREATER THAN [phone] STEPS, HE WORKS AT [employer] HE IS ON HIS FEET NEARLY CONSTANTLY AND REPORTS WALKING AN AVERAGE OF 40,000 STEPS DAILY. HE REPORTS ICE AND HEAT HELP THE PAIN AND HE HAS A KNEE BRACE WHICH ALSO HELPS. HE REPORTS BOTH CORTISONE INJECTIONS WELL GEL INJECTIONS WITH MINIMAL CHANGE IN SYMPTOMS. UPON EXAM HE DEMONSTRATES IMPAIRMENTS OF DECREASED ROM AND STRENGTH, ALTERED GAIT, INCREASED PAIN. FUNCTIONAL LIMITATIONS INCLUDE DECREASED TOLERANCE TO WALKING, STATIC STANDING/SITTING, DECREASED ABILITY TO PERFORM STAIRS NEGOTIATION WITH RECIPROCAL GAIT, DECREASED TOLERANCE TO HOMEMAKING AND WORK TASKS. 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 Manual therapy to restore motion and function. Therapeutic exercise to improve strength and flexibility. Neuromuscular re-education for posture and balance. Therapeutic activities to return to functional activities of daily living. Electronically signed by: HIRAM MCDONALD PT DPT Please sign and return to therapist. Thank you for your referral.
== END 2023-01-26 13:48 | disposition home or self-care (01) ==
LOC: HO.PT 14:00
PROVIDERS: PCP Nurse Practitioner Family; Visit Provider Physician Assistant
DX: M94.262 Chondromalacia, left knee (principal); M17.12 Unilateral primary osteoarthritis, left knee
CPT/HCPCS: 97110; 97161

== ENCOUNTER 2023-01-25 12:15 | Outpatient (AMB) | payer OTHER, SELFPAY ==
[2023-01-25 12:53] VITALS: PULSE 77; RESP 12; O2SAT 96; BMI 37.3
--- NOTE | 2023-01-25 12:53 | A.OFFVIS_ITS ---
Intake Vital Signs 01/25/23 12:53 Height 6 ft Weight 275 lb BMI 37.3 Blood Pressure Location Lt brachial Position Sitting Respiration 12 Pulse 77 Pulse Source Pulse Oximeter Pulse Oximetry (%) 96 Oxygen Delivery Method Room Air Intake Visit Reasons: needs paperwork filled out Allergies bee pollen Allergy (Intermediate, Verified 02/01/23 14:30) Hives Medication List - Last Reconciled 01/25/23 by Tiana Ash LPN blood sugar diagnostic (FreeStyle Lite Strips) test daily blood-glucose meter (FreeStyle Lite Meter kit) test daily celecoxib (Celebrex) 200 mg PO BID 30 days chlorhexidine gluconate 0.12% 15 mL PO BID cholecalciferol (vitamin D3) 50 mcg PO DAILY clotrimazole 1% (Antifungal (clotrimazole)) 1 appl topical BID PRN 2 weeks ibuprofen 600 mg PO Q8H PRN lancets (FreeStyle Lancets) test daily metformin ER 500 mg PO DAILY HPI needs paperwork filled out HPI Details 42-year-old male who presents today to t he office to review and fill out work accommodation related paperwork prior to upcoming procedure. He has a scheduled procedure on 02/03/2023. He is unable to stand for more than 6 hours. He has to stand for 10 hours a day at work. His work requires a lot of bending, squatting, and lifting. He injured himself in September 2022 while squatting at work. He has to lift weights as part of his work. These are all activities that he would be unable to do given his current status his well as once the temporary nerve stimulator is placed in his leg. ? [facility] History History of chest pain Encounter to establish care Surgical History Hx of tooth extraction History of rotator cuff surgery History of cholecystectomy Family History Mother Lung cancer COPD (chronic obstructive pulmonary disease) Father Diabetes COPD (chronic obstructive pulmonary disease) Other Substance use disorder Housing: House Alcohol intake: current Alcohol intake frequency: a few times a month Alcohol type: beer Patient Tobacco Use Status: Current someday Tobacco user Tobacco use type: Cigar e-Cigarette/Vaping Use: Never Used Second Hand Smoke Exposure: No Substance Use Type: Other service: No Current occupational status: employed 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 Cognitive needs: No Hearing needs: No Vision needs: Yes (glasses) Review of Systems Const All systems reviewed & are unremarkable except as noted in HPI and below Physical Exam Vital Signs: Last Vital Signs Pulse 77 01/25/23 12:53 Resp 12 01/25/23 12:53 Pulse Ox 96 01/25/23 12:53 Oxygen Delivery Method Room Air 01/25/23 12:53 BMI result Body Mass Index 37.3 General: Appears afebrile. Alert and oriented. Mood and affect appropriate. Follows and participates in conversation appropriately. Respiratory effort is unlabored. Able to transition from sit to stand unassisted. Ambulates with bilaterally normal heel strike and toe off. Results Reviewed Results Reviewed: No imaging is available for review. Assessment & Plan Assessment & Plan (1) Left knee pain: Code(s): M25.562 - Pain in left knee Qualifiers: Chronicity: chronic Qualified Code(s): M25.562 - Pain in left knee; G89.29 - Other chronic pain Plan Proceed with planned procedure on 02/03 as scheduled. Scribed for Dr. Segal by Timur Vogel, medical lab assistant, on 01/25/2023. I, Dr. Segal, have personally reviewed and agree with the information entered by the scribe. Coding Level of Care Code Est Pt Level 2 (02428) Diagnoses Chronic pain of left knee M25.562; G89.29 Chronicity: chronic
== END 2023-01-25 13:56 | disposition home or self-care (01) ==
PROVIDERS: PCP Nurse Practitioner Family; Visit Provider Internal Medicine
DX: M25.562 Pain in left knee (principal); G89.29 Other chronic pain
CPT/HCPCS: 99212

== ENCOUNTER → 2023-01-25 12:15 | Outpatient (BNVA) | payer OTHER, SELFPAY | PROVIDERS: PCP Nurse Practitioner Family; Visit Provider Internal Medicine ==

== ENCOUNTER 2023-02-01 14:22 | Outpatient (AMB) | payer OTHER, SELFPAY ==
--- NOTE | 2023-02-01 14:28 | MHC.OFFVIS ---
Intake Vital Signs 02/01/23 14:29 Height 6 ft Weight 275 lb BMI 37.3 Blood Pressure Location Rt brachial Position Sitting Respiration 12 Pulse 77 Pulse Source Pulse Oximeter Pulse Oximetry (%) 100 Oxygen Delivery Method Room Air Intake Visit Reasons: has more paperwork to do/Confirmed Allergies bee pollen Allergy (Intermediate, Verified 02/03/23 07:23) Hives Medication List - Last Reconciled 02/01/23 by Tiana Ash LPN blood sugar diagnostic (FreeStyle Lite Strips) test daily blood-glucose meter (FreeStyle Lite Meter kit) test daily celecoxib (Celebrex) 200 mg PO BID 30 days chlorhexidine gluconate 0.12% 15 mL PO BID cholecalciferol (vitamin D3) 50 mcg PO DAILY clotrimazole 1% (Antifungal (clotrimazole)) 1 appl topical BID PRN 2 weeks ibuprofen 600 mg PO Q8H PRN lancets (FreeStyle Lancets) test daily metformin ER 500 mg PO DAILY HPI has more paperwork to do/Confirmed HPI Details 42-year-old male who presents today to the office for filling out further paperwork related to work-related accommodations in context of his upcoming procedure. [facility] Medical History History of chest pain Encounter to establish care Surgical History Hx of tooth extraction History of rotator cuff surgery History of cholecystectomy Family History Mother Lung cancer COPD (chronic obstructive pulmonary disease) Father Diabetes COPD (chronic obstructive pulmonary disease) Other Substance use disorder Social History Housing: House Alcohol intake: current Alcohol intake frequency: a few times a month Alcohol type: beer Comment: NO COUNTS NEEDED Patient Tobacco Use Status: Current someday Tobacco user Tobacco use type: Cigar e-Cigarette/Vaping Use: Never Used Second Hand Smoke Exposure: No Substance Use Type: Other service: No Current occupational status: employed 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 Alert and oriented. Mood and affect appropriate. Follows and participates in conversation appropriately. Respiratory effort is unlabored. Able to transition from sit to stand unassisted. Ambulates with bilaterally normal heel strike and toe off. Results Reviewed Results Reviewed: No imaging is available for review. Assessment & Plan Assessment & Plan (1) Left knee pain: Code(s): M25.562 - Pain in left knee Qualifiers: Chronicity: chronic Qualified Code(s): M25.562 - Pain in left knee; G89.29 - Other chronic pain Plan Filled out accommodation requests for the patient's employer. The patient has a scheduled procedure on Wednesday. He will keep his appointment. Scribed for Dr. Segal by Timur Vogel, ophthalmic medical assistant, on 02/01/2023. I, Dr. Segal, have personally reviewed and agree with the information entered by the scribe. Coding Level of Care Code Est Pt Level 2 (63995) Diagnoses Chronic pain of left knee M25.562; G89.29 Chronicity: chronic
[2023-02-01 14:29] VITALS: PULSE 77; RESP 12; O2SAT 100; BMI 37.3
== END 2023-02-01 14:55 | disposition home or self-care (01) ==
PROVIDERS: PCP Nurse Practitioner Family; Visit Provider Internal Medicine
DX: M25.562 Pain in left knee (principal); G89.29 Other chronic pain
CPT/HCPCS: 99212

== ENCOUNTER → 2023-02-01 14:22 | Outpatient (BNVA) | payer OTHER, SELFPAY | PROVIDERS: PCP Nurse Practitioner Family; Visit Provider Internal Medicine ==

== ENCOUNTER 2023-02-03 06:40 | Day surgery (SDC) | payer OTHER, SELFPAY ==
[2023-02-03 07:23] VITALS: BMI 37.1
--- NOTE | 2023-02-03 08:36 | P.BOP_ITS ---
Brief Operative Note Date of Service: 02/03/23 Pre-op diagnosis: Intractable left knee pain Post-op diagnosis: same Procedure: Temporary left saphenous nerve stimulator placement Implants: Sprint temporary PNS system Surgeon: Charles Segal MD Anesthesia: local Was an Rapid Transit Operator used for this Procedure?: No Estimated blood loss (mL): 0 Pathology: none sent Condition: stable Disposition: same day
--- NOTE | 2023-02-03 08:36 | MHC.SHP ---
Pre-Procedural Eval Section A Date of Service: 02/03/23 The patient is an INPATIENT: No Changes since office visit: Yes Patient answered all questions The History & Physical has been completed within 30 days and I have reviewed it.: No Section B Chief Complaint: Pain in left knee Relevant Family History (Specify if Yes): Yes Relevant Social History: None Present Medications: see Short Stay Collaborative assessment Medical History: No relevant PMH History of Previous Operations: No relevant previous surgery Allergies: Allergies Allergy/AdvReac Type Severity Reaction Status Date / Time bee pollen Allergy Intermediate Hives Verified 02/03/23 07:23 Review of Systems Sugical H&P ROS: Negative: Constitution, Cardiovascular and Respiratory Exam Surgical H&P Exam: Normal: HEENT, Normal: Heart and Normal: Lungs Plan Diagnosis/Plan: Unchanged I have reviewed the history and physical and performed a pertinent physical examination on my patient. No changes have occurred unless specified. Time Spent With Patient Time: Total time managing care of this patient today ____ minutes.
--- NOTE | 2023-02-03 08:37 | P.OP_ITS ---
Operative Note Operative Note Date of Service: 02/03/23 Narrative: Peripheral Nerve Stimulation Temporary Lead Placement, Ultrasound-Guided, Saphenous Nerve, Left ? After the risks, benefits and alternatives were discussed with the patient and informed consentwas obtained, patient was placed in the supine position and padded to foster comfort. Appropriate skin and bony landmarks were identified, and pertinent vascular structures were located. The skin overlying the needle entry site was prepped and draped in sterile fashion. Ultrasound was used to identify the femoral artery, the femoral vein and the saphenous nerve. After identifying and marking the intended target along the course of the saphenous nerve, the skin around the planned entry point and the subcutaneous tissues were injected with local anesthetic. An introducer needle and stimulating probe were assembled, inserted and advanced along the intended course of the saphenous; nerve, taking care to maintain the proper depth of insertion as the introducer was advanced under ultrasound guidance. The introducer needle was delivered to a location in proximity to the nerve taking care not to puncture the femoral artery or the vein. Multiple stimulation parameters were used to deliver stimulation to the saphenous nerve in concert with stimulating at multiple positions around the nerve. Nerve target acquisition was confirmed noting generation of sensory and mild motor effects (paresthesia, muscle tension, etc) in the medial knee, leg and ankle; corresponding to the distribution of the saphenous nerve. Various electrical parameter combinations were tested, and the lead location was adjusted (physica lly relocated under ultrasound guidance) until the patient indicated medial knee paresthesia and tension overlapping the distribution of the patient?s typical region of pain. The stimulating probe was removed from the introducer and a percutaneous lead was guided through the needle and delivered to a location in similar proximity to the nerve. Final location was verified with electrical stimulation and documented. The introducer needle was removed, and the exposed end of the percutaneous lead was attached to an external stimulator unit. Various electrical parameter combinations were again tested until the patient indicated paresthesia and muscle tension overlapping the distribution of the patient?s typical region of pain. After confirming that lead impedance was in the normal range, the external unit was detached, the needle was removed, and the lead was anchored at the skin. The lead was threaded into the connector block and electrical continuity and desired patient response was confirmed. The connector block was attached to the external stimulator unit. The site was covered with a sterile occlusive dressing. A final ultrasound image was taken to document final placement. The patient was observed for stability of vital signs and comfort.
[2023-02-03 09:16] VITALS: BP 112/74; PULSE 58; RESP 18; TEMP 36.3; O2SAT 99
== END 2023-02-03 09:19 | disposition home or self-care (01) ==
PROVIDERS: PCP Nurse Practitioner Family; Visit Provider Internal Medicine
PROC: (CPT 64555; principal; 2023-02-03 08:00)
DX: M25.562 Pain in left knee (principal); M17.12 Unilateral primary osteoarthritis, left knee; G89.29 Other chronic pain; Z87.828 Personal history of other (healed) physical injury and trauma; E11.9 Type 2 diabetes mellitus without complications; Z79.1 Long term (current) use of non-steroidal anti-inflammatories (NSAID); Z79.84 Long term (current) use of oral hypoglycemic drugs; Z79.899 Other long term (current) drug therapy; Z90.49 Acquired absence of other specified parts of digestive tract; F17.290 Nicotine dependence, other tobacco product, uncomplicated
CPT/HCPCS: 64555; C1778

== ENCOUNTER → 2023-02-03 06:40 | Outpatient (BNV) | payer OTHER, SELFPAY | PROVIDERS: PCP Nurse Practitioner Family; Visit Provider Internal Medicine | DX: M25.562 Pain in left knee (principal) | CPT/HCPCS: 64555 ==

== ENCOUNTER 2023-02-05 08:48 | Outpatient (AMB) | payer OTHER, SELFPAY ==
--- NOTE | 2023-02-05 09:08 | MHC.OFFVIS ---
Intake Vital Signs 02/05/23 09:09 Height 6 ft Weight 273 lb BMI 37.0 Blood Pressure Location Rt brachial Position Sitting Respiration 12 Pulse 65 Pulse Source Pulse Oximeter Pulse Oximetry (%) 99 Oxygen Delivery Method Room Air Intake Visit Reasons: s/p Left SN Sprint Allergies bee pollen Allergy (Intermediate, Verified 02/05/23 09:10) Hives Medication List - Last Reconciled 02/05/23 by Tiana Ash LPN blood sugar diagnostic (FreeStyle Lite Strips) test daily blood-glucose meter (FreeStyle Lite Meter kit) test daily celecoxib (Celebrex) 200 mg PO BID 30 days chlorhexidine gluconate 0.12% 15 mL PO BID cholecalciferol (vitamin D3) 50 mcg PO DAILY clotrimazole 1% (Antifungal (clotrimazole)) 1 appl topical BID PRN 2 weeks ibuprofen 600 mg PO Q8H PRN lancets (FreeStyle Lancets) test daily metformin ER 500 mg PO DAILY HPI s/p Left SN Sprint HPI Details 42-year-old male who presents today to the office for a status post left SN sprint. The patient reports about 60% relief following the procedure so far. He has experienced significant pain improvement post-procedure. The patient reports numbness in his left upper thigh when sitting for prolonged periods of time, which resolves with standing and walking for a short period of time. This symptom started yesterday. He is not wearing any belts. He has some additional paper work with him today. Past procedure: 02/03/23: Peripheral Nerve Stimulation Temporary Lead Placement, Ultrasound-Guided, Saphenous Nerve, Left: Significant initial relief. [facility] Medical History History of chest pain Encounter to establish care Surgical History Hx of tooth extraction History of rotator cuff surgery History of cholecystectomy Family History Mother Lung cancer COPD (chronic obstructive pulmonary disease) Father Diabetes COPD (chronic obstructive pulmonary disease) Other Substance use disorder Social History Housing: House Alcohol intake: current Alcohol intake frequency: a few times a month Alcohol type: beer Comment: NO COUNTS NEEDED Patient Tobacco Use Status: Current someday Tobacco user Tobacco use type: Cigar e-Cigarette/Vaping Use: Never Used Second Hand Smoke Exposure: No Substance Use Type: Other service: No Current occupational status: employed 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 Alert and oriented. Mood and affect appropriate. Follows and participates in conversation appropriately. Respiratory effort is unlabored. Able to transition from sit to stand unassisted. Ambulates with bilaterally normal heel strike and toe off. Lead insertion site is clean dry and intact. Results Reviewed Results Reviewed: No imaging is available for review. Assessment & Plan Assessment & Plan (1) Left knee pain: Code(s): M25.562 - Pain in left knee Qualifiers: Chronicity: chronic Qualified Code(s): M25.562 - Pain in left knee; G89.29 - Other chronic pain (2) Patellofemoral arthritis of left knee: Code(s): M17.12 - Unilateral primary osteoarthritis, left knee Plan The patient will continue the therapy. The dressing was changed today. The patient will follow-up in seven weeks for removal of device. Educated about posture modification for possible symptoms of meralgia paresthetica. Scribed for Dr. Segal by Timur Vogel, medical charge entry specialist, on 02/05/2023. I, Dr. Segal, have personally reviewed and agree with the information entered by the scribe. Coding Level of Care Code Est Pt Level 3 (77764) Diagnoses Chronic pain of left knee M25.562; G89.29 Chronicity: chronic Patellofemoral arthritis of left knee M17.12
[2023-02-05 09:09] VITALS: PULSE 65; RESP 12; O2SAT 99; BMI 37.0
== END 2023-02-05 09:27 | disposition home or self-care (01) ==
PROVIDERS: PCP Nurse Practitioner Family; Visit Provider Internal Medicine
DX: M25.562 Pain in left knee (principal); G89.29 Other chronic pain; M17.12 Unilateral primary osteoarthritis, left knee
CPT/HCPCS: 99024

== ENCOUNTER → 2023-02-05 08:48 | Outpatient (BNVA) | payer OTHER, SELFPAY | PROVIDERS: PCP Nurse Practitioner Family; Visit Provider Internal Medicine ==

== ENCOUNTER 2023-03-16 13:43 | Outpatient (AMB) | payer OTHER, SELFPAY ==
--- NOTE | 2023-03-16 13:53 | A.OFFPC_ITS ---
Vital Signs 03/16/23 13:55 Height 6 ft Weight 277 lb BMI 37.6 BP 110/74 Blood Pressure Location Lt brachial Position Sitting Pulse 75 Pulse Source Pulse Oximeter Pulse Oximetry (%) 96 Oxygen Delivery Method Room Air Intake Visit Reasons: 4 month f/u dm and fmla update Intake Note: Patient is here to follow up on DM and FMLA update. Transfer of care from . Mold Technician Required: No Ict Systems Test Engineer: Not Required per policy Accompanied by: Self / Same As Patient Allergies bee pollen Allergy (Intermediate, Verified 03/16/23 13:55) Hives Tobacco use date assessed: 03/16/23 Dental Screening Dental Screen Date: 03/16/23 Did you have a dental visit in the last 12 months?: Yes Did you have a dental problem in the last 6 months where you did not have access to dental care?: No Was dental information given to patient?: Patient has dentist HPI 4 month f/u dm and fmla update HPI Details 42-year-old male presents to the office to discuss his chronic medical conditions. I informed the patient that I will be his primary care provider from now. His prior provider has left the practice. Patient is type 2 diabetic and has not been exercising due to significant osteoarthritis in the left knee. He is wearing a tens unit and currently on FMLA. Patient not following any particular diet. Compliant with the medications. [facility] Medical History History of chest pain Encounter to establish care Surgical History Hx of tooth extraction History of rotator cuff surgery History of cholecystectomy Family History Mother Lung cancer COPD (chronic obstructive pulmonary disease) Father Diabetes COPD (chronic obstructive pulmonary disease) Other Substance use disorder Social History Housing: House Alcohol intake: current Alcohol intake frequency: a few times a month Alcohol type: beer Comment: NO COUNTS NEEDED Patient Tobacco Use Status: Current someday Tobacco user Tobacco use type: Cigar e-Cigarette/Vaping Use: Never Used Second Hand Smoke Exposure: No Substance Use Type: Other service: No Current occupational status: employed 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 1. Little interest or pleasure in doing things: not at all 2. Feeling down, depressed, or hopeless: not at all 3. Trouble falling or staying asleep, or sleeping too much: not at all 4. Feeling tired or having little energy: not at all 5. Poor appetite or overeating: not at all 6. Feeling bad about yourself - or that you are a failure or have let yourself or your family down: not at all 7. Trouble concentrating on things, such as reading the newspaper or watching television: not at all 8. Moving or speaking so slowly that other people could have noticed. Or the opposite - being so fidgety or restless that you have been moving around a lot more than usual: not at all 9. Thoughts that you would be better off or of hurting yourself in some way: not at all Total score: 0 Depression Screening Interpretation: Negative Depression Screening Done: Yes Source: Developed by Drs. Patricio Chirinos, Silvia Trivedi, Mahad Mckinney and colleagues, with an educational davy from [employer]. Thrive Questionnaire Date Thrive assessed: 03/16/23 I am a: Patient What is your living situation today?: I have a steady place to live Within the past 12 months, did the food you bought not last and you didn't have the money to get more?: Never true Within the past 12 months, did you worry whether your food would run out before you got money to buy more?: Never true Do you have trouble paying for medicines?: No Do you have trouble getting transportation to medical appointments?: No Do you have trouble paying your heating and electricity bill?: No Do you have trouble taking care of your child, family member or friend?: No Do you have trouble with day-to-day activities such as bathing, preparing meals, shopping, managing finances, etc.?: No Are you currently unemployed and looking for a job?: No Are you interested in more education?: No Currently or been in a relationship where the following occur: no concerns reported AUDIT C Alcohol Use Questionnaire (AUDIT-C) 1. How often do you have a drink containing alcohol?: Monthly or less 2. How many drinks containing alcohol do you have on a typical day when you are drinking?: 1 or 2 Total Score: 1 LAMAR-7 AMB Questionnaire LAMAR-7 Date LAMAR - 7 assessed: 03/16/23 Feeling nervous, anxious, or on edge: 0 = Not at all Not being able to stop or control worryin = Not at all Worrying too much about different things: 0 = Not at all Trouble relaxin = Not at all Being so restless that it is hard to sit still: 0 = Not at all Becoming easily annoyed or irritable: 0 = Not at all Feeling afraid as if something awful might happen: 0 = Not at all Total LAMAR-7 score (0-4 normal; 5-9 mild; 10-14 moderate; 15-21 severe): 0 Source: Developed by Drs. Patricio Chirinos, Silvia Trivedi, Mahad Mckinney and colleagues, with an educational davy from [employer]. Physical exam (Primary Care) Vital Signs: Last Vital Signs Pulse 75 03/16/23 13:55 BP 110/74 03/16/23 13:55 Pulse Ox 96 03/16/23 13:55 Oxygen Delivery Method Room Air 03/16/23 13:55 BMI result Body Mass Index 37.6 Tobacco/Smoking Status: Tobacco use Status Tobacco use date assessed 03/16/23 03/16/23 13:55 Patient Tobacco Use Status Current someday Tobacco 03/16/23 13:55 Tobacco use type Cigar 03/16/23 13:55 e-Cigarette/Vaping Use Never Used 03/16/23 13:55 PHQ-9: PHQ-9 Score PHQ-9: Total score 0 03/16/23 14:27 Depression Screening Interpretation: Negative Thrive Assessment: Date of Thrive Assessment Date Thrive assessed 03/16/23 03/16/23 13:55 Currently or been in a relationship where the following occur: no concerns reported Const General: cooperative and healthy appearing Nutritional Appearance: well nourished Orientation/consciousness: patient oriented x3 Limitations: no limitations HENMT Head: Yes normal to inspection Eyes General: appearance normal, both eyes and all related structures Neck Neck: Yes normal visual inspection Chest Chest palpation & inspection: normal palpation of entire chest wall Resp Effort & Inspection: normal respiratory effort Neuro General: patient oriented x3 Results AMB Hemoglobin A1c 2 AMB Hemoglobin A1c 7.9 % Last Edit by RUSTAM King on 03/16/23 14:07 Results Reviewed Results Reviewed: Laboratory Last Values Hgb A1c (Clinic) 7.9 % (4.0-6.0) H 03/16/23 13:55 Assessment and Plan Assessment & Plan (1) Diabetes mellitus, new onset: Code(s): E11.9 - Type 2 diabetes mellitus without complications Plan: Metformin dosage has been increased to twice a day. Trulicity has been added to the regimen. Patient was advised to reduce his carbohydrate intake. Orders: Orders AMB Hemoglobin A1c Today E11.9 - Type 2 diabetes mellitus without complications Medications: New dulaglutide (Trulicity) 0.75 mg (0.5 mL) subcut QWEEK 2 mL 1RF dulaglutide (Trulicity) 0.75 mg (0.5 mL) subcut QWEEK 2 mL 1RF Changed From metformin ER 500 mg PO DAILY 30 tabs 2RF E11.9 - Type 2 diabetes mellitus without complications To metformin ER 500 mg PO BID 180 tabs 1RF E11.9 - Type 2 diabetes mellitus without complications Refilled metformin ER 500 mg PO BID 180 tabs 1RF E11.9 - Type 2 diabetes mellitus without complications Coding Level of Care Code Est Pt Level 4 (52183) Diagnoses Diabetes mellitus, new onset E11.9
[2023-03-16 13:55] VITALS: BP 110/74; PULSE 75; O2SAT 96; BMI 37.6
== END 2023-03-16 14:23 | disposition home or self-care (01) ==
PROVIDERS: PCP Internal Medicine; Visit Provider Internal Medicine
DX: E11.9 Type 2 diabetes mellitus without complications (principal)
CPT/HCPCS: 83036; 99214

== ENCOUNTER 2023-03-26 09:09 | Outpatient (AMB) | payer OTHER, SELFPAY ==
--- NOTE | 2023-03-26 09:28 | MHC.OFFVIS ---
Intake Vital Signs 03/26/23 09:29 Height 6 ft Weight 278 lb BMI 37.7 BP 116/69 Blood Pressure Location Rt brachial Position Sitting Respiration 12 Pulse 65 Pulse Source Pulse Oximeter Pulse Oximetry (%) 95 Oxygen Delivery Method Room Air Intake Visit Reasons: Sprint removal/lvm Allergies bee pollen Allergy (Intermediate, Verified 03/26/23 09:31) Hives Medication List - Last Reconciled 03/26/23 by Tiana Ash LPN blood sugar diagnostic (FreeStyle Lite Strips) test daily blood-glucose meter (FreeStyle Lite Meter kit) test daily celecoxib (Celebrex) 200 mg PO BID 30 days cholecalciferol (vitamin D3) 50 mcg PO DAILY clotrimazole 1% (Antifungal (clotrimazole)) 1 appl topical BID PRN 2 weeks dulaglutide (Trulicity) 0.75 mg (0.5 mL) subcut QWEEK epinephrine (EpiPen) 0.3 mg (0.3 mL) IM Q4H PRN ibuprofen 600 mg PO Q8H PRN lancets (FreeStyle Lancets) test daily metformin ER 500 mg PO BID HPI Sprint removal/lvm HPI Details 42-year-old male who presents today to the office for a sprint removal. The patient reports 50-60% relief following the procedure. His sprint was removed today. He states that his pain improved from 6-7 down to 3 in intensity. He had no pain for the whole day. He was using the device at 70 constantly. He had received hyaluronic acid injections in the past without significant benefit. He is performing strengthening exercises at home. He is thinking of joining the gym. Past procedure: 02/03/23: Peripheral Nerve Stimulation Temporary Lead Placement, Ultrasound-Guided, Saphenous Nerve, Left: 50-60% relief. [facility], [facility] Medical History History of chest pain Encounter to establish care Surgical History Hx of tooth extraction History of rotator cuff surgery History of cholecystectomy Family History Mother Lung cancer COPD (chronic obstructive pulmonary disease) Father Diabetes COPD (chronic obstructive pulmonary disease) Other Substance use disorder Social History Housing: House Alcohol intake: current Alcohol intake frequency: a few times a month Alcohol type: beer Comment: NO COUNTS NEEDED Patient Tobacco Use Status: Current someday Tobacco user Tobacco use type: Cigar e-Cigarette/Vaping Use: Never Used Second Hand Smoke Exposure: No Substance Use Type: Other service: No Current occupational status: employed 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 Alert and oriented. Mood and affect appropriate. Follows and participates in conversation appropriately. Respiratory effort is unlabored. Able to transition from sit to stand unassisted. Ambulates with bilaterally normal heel strike and toe off. Results Reviewed Results Reviewed: No imaging is available for review. Assessment & Plan Assessment & Plan (1) Left knee pain: Code(s): M25.562 - Pain in left knee Qualifiers: Chronicity: chronic Qualified Code(s): M25.562 - Pain in left knee; G89.29 - Other chronic pain Plan The sprint device was removed today in the office. The patient will continue core strengthening exercises at home. I also recommended trying swimming with strengthening exercises. The patient will follow-up as needed. Scribed for Dr. Sgeal by Timur Vogel, medical record librarian, on 03/26/2023. I, Dr. Segal, have personally reviewed and agree with the information entered by the scribe. Coding Level of Care Code Est Pt Level 3 (11446) Diagnoses Chronic pain of left knee M25.562; G89.29 Chronicity: chronic
[2023-03-26 09:29] VITALS: BP 116/69; PULSE 65; RESP 12; O2SAT 95; BMI 37.7
== END 2023-03-26 10:00 | disposition home or self-care (01) ==
PROVIDERS: PCP Nurse Practitioner Family; Visit Provider Internal Medicine
DX: M25.562 Pain in left knee (principal); G89.29 Other chronic pain
CPT/HCPCS: 99213

== ENCOUNTER → 2023-03-26 09:09 | Outpatient (BNVA) | payer OTHER, SELFPAY | PROVIDERS: PCP Nurse Practitioner Family; Visit Provider Internal Medicine ==

== ENCOUNTER 2023-08-05 14:53 | Outpatient (AMB) | payer OTHER, SELFPAY ==
--- NOTE | 2023-08-05 15:12 | A.OFFPC_ITS ---
Vital Signs 08/05/23 15:13 Height 6 ft Weight 274 lb 2 oz BMI 37.2 BP 110/68 Blood Pressure Location Lt brachial Position Sitting Pulse 67 Pulse Source Pulse Oximeter Pulse Oximetry (%) 98 Oxygen Delivery Method Room Air Intake Visit Reasons: 1 month f/u Intake Note: Patient is here to follow up on DM. Complain of right knee pain ongoing for a week. 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 Patient was started on metformin and Trulicity to control his blood sugars. Patient is unable to tolerate Trulicity. He used it twice on 2 successive weekends at felt very nauseous. He is very reluctant to take this medication. Taking the metformin without any side effects. Not checking his blood sugars frequently. Is not following and exercise or diet regimen. [facility] Medical History (Updated 08/10/23 @ 14:46 by Khurram Bray MD) Diabetes mellitus History of chest pain Encounter to establish care Surgical History (Updated 08/05/23 @ 15:23 by RUSTAM King) History of left knee surgery Hx of tooth extraction History of rotator cuff surgery History of cholecystectomy Family History Mother Lung cancer COPD (chronic obstructive pulmonary disease) Father Diabetes COPD (chronic obstructive pulmonary disease) Other Substance use disorder Social History Housing: House Alcohol intake: current Alcohol intake frequency: a few times a month Alcohol type: beer Comment: NO COUNTS NEEDED Patient Tobacco Use Status: Current someday Tobacco user Tobacco use type: Cigar e-Cigarette/Vaping Use: Never Used Second Hand Smoke Exposure: No Substance Use Type: Other service: No Current occupational status: employed 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 Patricio Chirinos, Silvia Trivedi, Mahad Mckinney and colleagues, with an educational davy from [employer]. Physical exam (Primary Care) Vital Signs: Last Vital Signs Pulse 67 08/05/23 15:13 BP 110/68 08/05/23 15:13 Pulse Ox 98 08/05/23 15:13 Oxygen Delivery Method Room Air 08/05/23 15:13 Care Plan Goal for BP management: Blood pressure is in range. BMI result Body Mass Index 37.2 Tobacco/Smoking Status: Tobacco use Status Tobacco use date assessed 08/05/23 08/05/23 15:25 Patient Tobacco Use Status Current someday Tobacco 08/05/23 15:25 Tobacco use type Cigar 08/05/23 15:25 e-Cigarette/Vaping Use Never Used 08/05/23 15:25 Are you ready to quit: No Thrive Assessment: Date of Thrive Assessment Date Thrive assessed 03/16/23 08/05/23 15:25 Const General: cooperative and healthy appearing Nutritional Appearance: well nourished Orientation/consciousness: patient oriented x3 Limitations: no limitations HENMT Head: Yes normal to inspection Eyes General: appearance normal, both eyes and all related structures Neck Neck: Yes normal visual inspection Chest Chest palpation & inspection: normal palpation of entire chest wall Resp Effort & Inspection: normal respiratory effort Neuro General: patient oriented x3 Results AMB Hemoglobin A1c AMB Hemoglobin A1c 7.1 % Last Edit by RUSTAM King on 08/05/23 15:28 Results Reviewed Results Reviewed: Laboratory Last Values Hgb A1c (Clinic) 7.1 % (4.0-6.0) H 08/05/23 15:12 Assessment and Plan Assessment & Plan (1) Diabetes mellitus: Code(s): E11.9 - Type 2 diabetes mellitus without complications Plan: Trulicity has been discontinued. Jardiance has been added instead. Continue the metformin at the same dosage. Counseling on the importance of diet and exercise done. Patient was advised to check blood sugars. Counseling to quit smoking done. 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
[2023-08-05 15:13] VITALS: BP 110/68; PULSE 67; O2SAT 98; BMI 37.2
== END 2023-08-05 16:00 | disposition home or self-care (01) ==
PROVIDERS: PCP Nurse Practitioner Family; Visit Provider Internal Medicine
DX: E11.9 Type 2 diabetes mellitus without complications (principal)
CPT/HCPCS: 83036; 99214

== ENCOUNTER 2023-10-23 10:02 | Outpatient (AMB) | payer OTHER, SELFPAY ==
--- NOTE | 2023-10-23 10:54 | AM.OFFWIN_ITS ---
Intake Vital Signs 10/23/23 10:55 Height 6 ft Weight 274 lb BMI 37.2 BP 112/84 Blood Pressure Location Lt radial Position Sitting Pulse 75 Pulse Source Pulse Oximeter Temp 98.2 F Temp Source Oral Pulse Oximetry (%) 98 Oxygen Delivery Method Room Air Intake Visit Reasons: EP Finger injury RT hand WC Patient Tobacco Use Status: Never used Tobacco Allergies bee pollen Allergy (Intermediate, Verified 10/23/23 10:55) Hives dulaglutide [From Trulicity] Allergy (Intermediate, Verified 10/23/23 10:55) Vomiting Do you need a note to return to daycare/school/sports/work: Yes HPI EP Finger injury RT hand WC HPI Details Pt c/o RT ring finger injury. 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 ~30 lb box fell on finger and bent back. Happened Wednesday [facility] Medical History (Updated 10/23/23 @ 11:33 by Austyn Osborn MD) Diabetes mellitus History of chest pain Encounter to establish care Surgical History (Updated 08/05/23 @ 15:23 by RUSTAM King) History of left knee surgery Hx of tooth extraction History of rotator cuff surgery History of cholecystectomy Family History Mother Lung cancer COPD (chronic obstructive pulmonary disease) Father Diabetes COPD (chronic obstructive pulmonary disease) Other Substance use disorder Social History Housing: House Alcohol intake: current Alcohol intake frequency: a few times a month Alcohol type: beer Comment: NO COUNTS NEEDED Patient Tobacco Use Status: Never used Tobacco Tobacco use type: Cigar e-Cigarette/Vaping Use: Never Used Second Hand Smoke Exposure: No Substance Use Type: Other service: No Current occupational status: employed 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 No numbness Physical Exam Vital Signs: Last Vital Signs Temp 98.2 F 10/23/23 10:55 Pulse 75 10/23/23 10:55 BP 112/84 10/23/23 10:55 Pulse Ox 98 10/23/23 10:55 Oxygen Delivery Method Room Air 10/23/23 10:55 BMI result Body Mass Index 37.2 Const General: no acute distress and well developed Nutritional Appearance: well nourished Orientation/consciousness: patient oriented x3 HEENT Head: Yes normocephalic and Yes atraumatic Eyes General: appearance normal, both eyes and all related structures Pupils: Equal, round and reactive pupils present EOM: EOMs intact bilaterally Resp Effort & Inspection: normal respiratory effort Neuro General: patient oriented x3 and gait normal Cranial nerves: Yes Equal, round and reactive pupils present Extrem Other: Mild swelling right 4th finger at base and some swelling and tenderness in the palm his hand He is able to flex and extend the finger. Capillary refill is normal. No excessive coolness or warmth. Psych Affect: normal affect Assessment & Plan Assessment & Plan (1) Hyperextension injury of finger of right hand: Code(s): S69.81XA - Other specified injuries of right wrist, hand and finger(s), initial encounter Plan: Hyper extension of 4th finger right hand with mild swelling in pain with flexion of finger. Patient is able to move fingers. Normal sensation and circulation. Likely sprain of flexor tendon Can use meloxicam, ice heat and elevation Will give him a splint and time off from work with a note. Checking x-ray to rule out occult avulsion fracture and will call infection is required. (2) Pain in finger of right hand: Code(s): M79.644 - Pain in right finger(s) Plan: As above Orders: Orders XR hand RT min 3V Today M79.644 - Pain in right finger(s), S69.81XA - Other specified injuries of right wrist, hand and finger(s), initial encounter Medications: New meloxicam 15 mg PO DAILY 30 days 30 tabs 0RF Coding Level of Care Code Est Pt Level 3 (94809) Diagnoses Hyperextension injury of finger of right hand S69.81XA Pain in finger of right hand M79.644
[2023-10-23 10:55] VITALS: BP 112/84; PULSE 75; TEMP 36.8; O2SAT 98; BMI 37.2
== END 2023-10-23 12:50 | disposition home or self-care (01) ==
PROVIDERS: PCP Internal Medicine; Visit Provider Family Medicine
DX: S69.81XA Other specified injuries of right wrist, hand and finger(s), initial encounter (principal); M79.644 Pain in right finger(s)
CPT/HCPCS: 99213

== ENCOUNTER 2023-10-23 11:35 | Outpatient (REF) | payer OTHER, SELFPAY ==
--- NOTE | ~2023-10-23 | XR_ITS ---
EXAMINATION: XR HAND, RIGHT CLINICAL INFORMATION: Injury COMPARISON: None available. TECHNIQUE: PA, lateral, and oblique views of the right hand. FINDINGS: The bones and soft tissues are normal. No fracture. Alignment is anatomic. Joint spaces are maintained. No erosions or soft tissue calcifications. XR/XR hand RT min 3V IMPRESSION: No fracture or dislocation.
== END 2023-10-23 11:36 | disposition home or self-care (01) ==
LOC: HO.HMGCX 11:35
PROVIDERS: PCP Internal Medicine; Visit Provider Family Medicine
DX: S69.81XD Other specified injuries of right wrist, hand and finger(s), subsequent encounter (principal); M79.644 Pain in right finger(s)
CPT/HCPCS: 73130

== ENCOUNTER 2023-10-25 14:11 | Outpatient (AMB) | payer OTHER, SELFPAY ==
[2023-10-25 14:25] VITALS: BP 102/62; PULSE 87; O2SAT 96; BMI 37.3
--- NOTE | 2023-10-25 14:25 | MHC.PC.OV ---
Vital Signs 10/25/23 14:25 Height 6 ft Weight 275 lb BMI 37.3 BP 102/62 Blood Pressure Location Lt brachial Position Sitting Pulse 87 Pulse Source Pulse Oximeter Pulse Oximetry (%) 96 Oxygen Delivery Method Room Air Intake Visit Reasons: Annual Exam Intake Note: Patient is here today for a physical. 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 Accompanied by: Self / Same As Patient Allergies bee pollen Allergy (Intermediate, Verified 10/25/23 15:26) Hives dulaglutide [From Trulicity] Allergy (Intermediate, Verified 10/25/23 15:26) Vomiting Medication List - Last Reconciled 10/25/23 by Khurram Bray MD blood sugar diagnostic (FreeStyle Lite Strips) test daily blood-glucose meter (FreeStyle Lite Meter kit) test daily celecoxib (Celebrex) 200 mg PO BID 30 days cholecalciferol (vitamin D3) 50 mcg PO DAILY clotrimazole 1% (Antifungal (clotrimazole)) 1 appl topical BID PRN 2 weeks empagliflozin (Jardiance) 25 mg PO DAILY epinephrine (EpiPen) 0.3 mg (0.3 mL) IM Q4H PRN ibuprofen 600 mg PO Q8H PRN lancets (FreeStyle Lancets) test daily meloxicam 15 mg PO DAILY 30 days metformin ER 500 mg PO BID Tobacco use date assessed: 08/05/23 Dental Screening Dental Screen Date: 03/16/23 HPI Annual Exam HPI Details 42-year-old male presents to the office requesting an annual physical. Patient has been tolerating the Jardiance well. He has not been checking his blood sugars at home. Compliant with his medications. In addition, patient wishes to discuss the episodes of fecal incontinence he is having. On more than 1 occasion, patient has had a large bowel movement in his pants. He gets the urge to go to the bathroom, when he stands up without his control he has passed large amount of stool into his pants. This has happened on more than 1 occasion. Patient has had a cholecystectomy. [facility] Medical History Diabetes mellitus History of chest pain Encounter to establish care Surgical History History of left knee surgery Hx of tooth extraction History of rotator cuff surgery History of cholecystectomy Family History Mother Lung cancer COPD (chronic obstructive pulmonary disease) Father Diabetes COPD (chronic obstructive pulmonary disease) Other Substance use disorder Social History Housing: House Alcohol intake: current Alcohol intake frequency: a few times a month Alcohol type: beer Comment: NO COUNTS NEEDED Patient Tobacco Use Status: Never used Tobacco Tobacco use type: Cigar e-Cigarette/Vaping Use: Never Used Second Hand Smoke Exposure: No Substance Use Type: Other service: No Current occupational status: employed Current occupation: [employer] Cognitive needs: No Hearing needs: No Vision needs: Yes (glasses) Questionnaire Thrive Questionnaire Date Thrive assessed: 03/16/23 LAMAR-7 AMB Questionnaire LAMAR-7 Date LAMAR - 7 assessed: 03/16/23 Source: Developed by Drs. Patricio Chirinos, Silvia Trivedi, Mahad Mckinney and colleagues, with an educational davy from [employer]. Physical exam (Primary Care) Vital Signs: Last Vital Signs Pulse 87 10/25/23 14:25 BP 102/62 10/25/23 14:25 Pulse Ox 96 10/25/23 14:25 Oxygen Delivery Method Room Air 10/25/23 14:25 Blood pressure is in range. BMI result Body Mass Index 37.3 BMI Assessment/Plan discussion: High (1 lb per week weight loss suggested.) BMI High, discussed plan: lifestyle, weight reduction and dietary Tobacco/Smoking Status: Tobacco use Status Tobacco use date assessed 08/05/23 10/25/23 14:29 Patient Tobacco Use Status Never used Tobacco 10/25/23 14:29 Tobacco use type Cigar 10/25/23 14:29 e-Cigarette/Vaping Use Never Used 10/25/23 14:29 Thrive Assessment: Date of Thrive Assessment Date Thrive assessed 03/16/23 10/25/23 14:29 Const General: cooperative and healthy appearing Nutritional Appearance: well nourished Orientation/consciousness: patient oriented x3 Limitations: no limitations HENMT Head: Yes normal to inspection Eyes General: appearance normal, both eyes and all related structures Neck Neck: Yes normal visual inspection Chest Chest palpation & inspection: normal palpation of entire chest wall Resp Effort & Inspection: normal respiratory effort Neuro General: patient oriented x3 Results AMB Hemoglobin A1c AMB Hemoglobin A1c 7.4 % Last Edit by ANGEL Mcdaniel on 10/25/23 15:33 Assessment and Plan Assessment & Plan (1) Diabetes mellitus, new onset: Code(s): E11.9 - Type 2 diabetes mellitus without complications Plan: A1c is 7.2. Continue medications at same dosage. (2) Annual physical exam: Code(s): Z00.00 - Encounter for general adult medical examination without abnormal findings Plan: Blood work has been ordered. Will call with results. (3) Fecal incontinence: Code(s): R15.9 - Full incontinence of feces Plan: GI consult has been requested. Orders: Orders AMB Hemoglobin A1c Today E11.9 - Type 2 diabetes mellitus without complications Coding Level of Care Code Est Pt Level 4 (21792) Est Pt Prev Care 40-64y(21265) Diagnoses Diabetes mellitus, new onset E11.9 Annual physical exam Z00.00 Fecal incontinence R15.9
== END 2023-10-25 15:38 | disposition home or self-care (01) ==
PROVIDERS: PCP Internal Medicine; Visit Provider Internal Medicine
DX: Z00.00 Encounter for general adult medical examination without abnormal findings (principal); E11.9 Type 2 diabetes mellitus without complications; R15.9 Full incontinence of feces
CPT/HCPCS: 83036; 99214; 99396

== ENCOUNTER 2024-01-31 15:23 | Outpatient (AMB) | payer OTHER, SELFPAY ==
--- NOTE | 2024-01-31 15:26 | MHC.PC.OV ---
Vital Signs 01/31/24 15:27 Height 6 ft Weight 271 lb 2 oz BMI 36.8 BP 140/62 H Blood Pressure Location Lt brachial Position Sitting Pulse 68 Pulse Source Pulse Oximeter Pulse Oximetry (%) 97 Oxygen Delivery Method Room Air Intake Visit Reasons: 3mth f/u Intake Note: Patient is here to follow up on DM. 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 Accompanied by: Self / Same As Patient Allergies bee pollen Allergy (Intermediate, Verified 01/31/24 15:27) Hives dulaglutide [From Trulicity] Allergy (Intermediate, Verified 01/31/24 15:27) Vomiting Tobacco use date assessed: 01/31/24 Dental Screening Dental Screen Date: 03/16/23 [facility] Medical History Diabetes mellitus History of chest pain Encounter to establish care Surgical History History of left knee surgery Hx of tooth extraction History of rotator cuff surgery History of cholecystectomy Family History Mother Lung cancer COPD (chronic obstructive pulmonary disease) Father Diabetes COPD (chronic obstructive pulmonary disease) Other Substance use disorder Social History Housing: House Alcohol intake: current Alcohol intake frequency: a few times a month Alcohol type: beer Comment: NO COUNTS NEEDED Patient Tobacco Use Status: Never used Tobacco Tobacco use type: Cigar e-Cigarette/Vaping Use: Never Used Second Hand Smoke Exposure: No Substance Use Type: Other service: No Current occupational status: employed 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 Patricio Chirinos, Silvia Trivedi, Mahad Mckinney and colleagues, with an educational davy from [employer]. Physical exam (Primary Care) Vital Signs: Last Vital Signs Pulse 68 01/31/24 15:27 BP 140/62 H 01/31/24 15:27 Pulse Ox 97 01/31/24 15:27 Oxygen Delivery Method Room Air 01/31/24 15:27 BMI result Body Mass Index 36.8 Tobacco/Smoking Status: Tobacco use Status Tobacco use date assessed 01/31/24 01/31/24 15:53 Patient Tobacco Use Status Never used Tobacco 01/31/24 15:53 Tobacco use type Cigar 01/31/24 15:53 e-Cigarette/Vaping Use Never Used 01/31/24 15:53 Thrive Assessment: Date of Thrive Assessment Date Thrive assessed 03/16/23 01/31/24 15:53 Results AMB Hemoglobin A1c AMB Hemoglobin A1c 6.9 % Last Edit by RUSTAM King on 01/31/24 16:00 Results Reviewed Results Reviewed: Laboratory Last Values Hgb A1c (Clinic) 6.9 % (4.0-6.0) H 01/31/24 15:26 Coding Level of Care Code Est Pt Level 4 (37958) Complex EM visit Add On G2211 Diagnoses Diabetes mellitus E11.9 Assessment & Plan Assessment & Plan (1) Diabetes mellitus: Code(s): E11.9 - Type 2 diabetes mellitus without complications Category: Medical Plan See below Orders: Orders AMB Hemoglobin A1c Today E11.9 - Type 2 diabetes mellitus without complications Medications: Refilled empagliflozin (Jardiance) 25 mg PO DAILY 90 tabs 1RF Scribe Plan - Not visible on output: History of Present Illness The patient is a 43-year-old male presenting with Type 2 Diabetes Mellitus. The patient's Hemoglobin A1c level has increased to 7.4%, indicating suboptimal control. He reports a dietary pattern of eating when hungry, primarily consuming more vegetables, yet he occasionally consumes meals such as cheeseburgers and fries. Although he has lost a modest amount of weight, currently weighing approximately 271 pounds, he does not frequently eat large quantities. The patient has low blood glucose episodes leading to symptoms such as sickness at work, but they resolved after rest and a return to higher glucose levels post-consumption of a meal. Previous treatment with the medication dulaglutide (Trulicity) caused adverse effects, and he found the combination of empagliflozin and metformin tolerable. The patient has expressed interest in trying semaglutide (Ozempic) to aid in weight management. The patient also experiences insomnia, reporting difficulty sleeping adequately for nearly 20 years, with past medical interventions resulting in undesirable prolonged sedation. Initially diagnosed with insomnia, patient responses to prescription sleep aids included excessive somnolence. Attempts to manage insomnia with [id number] inexpensive options resulted in significant drowsiness. The patient occasionally uses edible cannabis with marginal improvement in sleep duration but still averages only three to four hours of sleep per night, often accompanied by a racing mind. Additionally, the patient expressed experiencing anxiety, correlating with substantial personal stressors, including the recent illness and of family members. He declines pharmacological treatment for anxiety, instead choosing to seek support through conversation with a longstanding friend who successfully helped him manage past major depressive episodes following traumatic events. Knee pain is also problematic, particularly exacerbated by occupational activities involving frequent motions. A previous transcutaneous electrical nerve stimulation (TENS) unit did not provide relief. Social History - Employment: Works in an [employer], engaging in repetitive movements. - Work Hours: Night shifts from 1:20 AM to 11:50 AM. - Nutrition: Reports increased vegetable intake; experiences episodes of low blood sugar. - Substance Use: Occasional use of edible cannabis for improved sleep. - Family and Support: Has a friend providing emotional support for anxiety. Review of Systems - Psych: Reports feeling mentally down, history of suicidal ideation, anxiety, and depression. - Musculoskeletal: Reports knee pain related to repetitive activities. - Sleep: Reports chronic insomnia, with limited sleep and a racing mind. Physical Exam Results - Labs: Hemoglobin A1c is 7.4%. Plan - Diabetes Mellitus: Initiate semaglutide Ozempic) to assist with weight management and glucose control. Continue monitoring blood glucose levels regularly. - Insomnia: No pharmacological treatment currently advised; patient to continue intermittent use of edible cannabis. - Anxiety: No medications prescribed; continue with current support strategies. - Knee Pain: Monitor symptoms; consider future interventions if needed. Patient was informed and verbally consented to the use of an ambient scribe for clinic note documentation during this visit. Discussion Notes During our discussion, I reviewed the patient's current status with respect to diabetes management, anxiety, insomnia, and knee pain. Regarding diabetes, I explained the potential benefits of semaglutide (Ozempic), including weight reduction and improved glycemic control, and the patient consented to trying this therapy. We reviewed lifestyle measures, emphasizing the importance of balanced nutrition and the monitoring of blood glucose. For insomnia, we discussed the avoidance of prescribed sleep medications due to potential side effects and agreed upon a more conservative approach with intermittent cannabis use. I acknowledged the patient's preference to manage anxiety through personal support networks, reinforcing the plan to avoid medications for this concern. No immediate interventions for knee pain were pursued; however, I acknowledged the need for possible future management. We concluded with a commitment to follow-up and re-evaluation of these conditions on subsequent visits. Patient Instructions - Begin treatment with semaglutide (Ozempic) as directed. - Monitor blood glucose regularly and report any significant changes. - Maintain or enhance vegetable intake and monitor for low blood sugar symptoms. - Use edible cannabis intermittently for sleeplessness as patient deems necessary. - Seek emotional support from friends and continue non-pharmacologic management of anxiety. - Report any exacerbation of knee pain or other symptoms at next appointment. - Schedule follow-up appointments as needed to evaluate progress.
[2024-01-31 15:27] VITALS: BP 140/62; PULSE 68; O2SAT 97; BMI 36.8
== END 2024-01-31 16:08 | disposition home or self-care (01) ==
PROVIDERS: PCP Internal Medicine; Visit Provider Internal Medicine
DX: E11.9 Type 2 diabetes mellitus without complications (principal)

== ENCOUNTER → 2024-01-31 15:23 | Outpatient (BNVA) | payer OTHER, SELFPAY | PROVIDERS: PCP Internal Medicine; Visit Provider Internal Medicine | DX: E11.9 Type 2 diabetes mellitus without complications (principal); Z23 Encounter for immunization | CPT/HCPCS: 83036; 90471; 90656 ==

== ENCOUNTER 2024-05-11 14:25 | Outpatient (AMB) | payer OTHER, SELFPAY ==
[2024-05-11 14:30] VITALS: BP 114/82; PULSE 82; RESP 20; TEMP 36.2; O2SAT 97; BMI 38.0
--- NOTE | 2024-05-11 14:30 | MHC.PC.OV ---
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 Required: No Accompanied by: Self / Same As Patient Allergies bee pollen Allergy (Intermediate, Verified 05/11/24 14:53) Hives dulaglutide [From Trulicity] Allergy (Intermediate, Verified 05/11/24 14:53) Vomiting Medication List - Last Reconciled 05/11/24 by Ale Gonzalez PA-C blood sugar diagnostic (FreeStyle Lite Strips) test daily blood-glucose meter (FreeStyle Lite Meter kit) test daily celecoxib (Celebrex) 200 mg PO BID 30 days cholecalciferol (vitamin D3) 50 mcg PO DAILY clotrimazole 1% (Antifungal (clotrimazole)) 1 appl topical BID PRN 2 weeks empagliflozin (Jardiance) 25 mg PO DAILY epinephrine (EpiPen) 0.3 mg (0.3 mL) IM Q4H PRN ibuprofen 600 mg PO Q8H PRN lancets (FreeStyle Lancets) test daily metformin ER 500 mg PO BID semaglutide (Ozempic) 0.25 mg (0.368 mL) subcut QWEEK Tobacco use date assessed: 05/11/24 Dental Screening Dental Screen Date: 05/11/24 Did you have a dental visit in the last 12 months?: Yes Did you have a dental problem in the last 6 months where you did not have access to dental care?: No Was dental information given to patient?: Patient has dentist [facility] Medical History (Updated 05/11/24 @ 15:17 by Ale Gonzalez PA-C) History of alcohol dependence Type 2 diabetes mellitus with hemoglobin A1c goal of less than 7.0% Right knee pain History of chest pain Encounter to establish care Surgical History History of left knee surgery Hx of tooth extraction History of rotator cuff surgery History of cholecystectomy Family History Mother Lung cancer COPD (chronic obstructive pulmonary disease) Father Diabetes COPD (chronic obstructive pulmonary disease) Other Substance use disorder Social History Housing: House Alcohol intake: current Alcohol intake frequency: a few times a month Alcohol type: beer Comment: NO COUNTS NEEDED Patient Tobacco Use Status: Current someday Tobacco user Tobacco use type: Cigar e-Cigarette/Vaping Use: Never Used Second Hand Smoke Exposure: No Substance Use Type: Other Substance Use Type Other:: THC Cartridge service: No Current occupational status: employed Current occupation: [email or web address] Cognitive needs: No Hearing needs: No Vision needs: Yes (glasses) Questionnaire PHQ-9 Over the last 2 weeks, how often have you been bothered by any of the following problems? 1. Little interest or pleasure in doing things: not at all 2. Feeling down, depressed, or hopeless: nearly every day 3. Trouble falling or staying asleep, or sleeping too much: nearly every day 4. Feeling tired or having little energy: more than half the days 5. Poor appetite or overeating: nearly every day 6. Feeling bad about yourself - or that you are a failure or have let yourself or your family down: not at all 7. Trouble concentrating on things, such as reading the newspaper or watching television: several days 8. Moving or speaking so slowly that other people could have noticed. Or the opposite - being so fidgety or restless that you have been moving around a lot more than usual: more than half the days 9. Thoughts that you would be better off or of hurting yourself in some way: not at all Total score: 14 Depression Screening Interpretation: Positive Depression Screening Follow-up: Existing condition (Patient see's a therapist does not need any referral or medications at this time. ) Depression Screening Done: Yes 72996 - PHQ-9 Billing: Yes Source: Developed by Drs. Patricio Chirinos, Silvia Trivedi, Mahad Mckinney and colleagues, with an educational davy from [employer]. Thrive Questionnaire Date Thrive assessed: 05/11/24 I am a: Patient What is your living situation today?: I have a steady place to live Within the past 12 months, did the food you bought not last and you didn't have the money to get more?: Never true Within the past 12 months, did you worry whether your food would run out before you got money to buy more?: Never true Do you have trouble paying for medicines?: No Do you have trouble getting transportation to medical appointments?: No Do you have trouble paying your heating and electricity bill?: No Do you have trouble taking care of your child, family member or friend?: No Do you have trouble with day-to-day activities such as bathing, preparing meals, shopping, managing finances, etc.?: No Are you currently unemployed and looking for a job?: No Are you interested in more education?: No Please select the resources that you would like help with: None Currently or been in a relationship where the following occur: No concerns reported THRIVE Score: 0 AUDIT C Alcohol Use Questionnaire (AUDIT-C) 1. How often do you have a drink containing alcohol?: 2-3 times a week 2. How many drinks containing alcohol do you have on a typical day when you are drinking?: 3 or 4 3. How often do you have six or more drinks on one occasion?: Monthly Total Score: 6 Score Reviewed/Action Taken: Yes (patient is attempting to cut down on his own. Has decreased from prior. ) LAMAR-7 AMB Questionnaire LAMAR-7 Date LAMAR - 7 assessed: 05/11/24 Feeling nervous, anxious, or on edge: 2 = More than half the days Not being able to stop or control worryin = Nearly every day Worrying too much about different things: 3 = Nearly every day Trouble relaxin = Nearly every day Being so restless that it is hard to sit still: 3 = Nearly every day Becoming easily annoyed or irritable: 2 = More than half the days Feeling afraid as if something awful might happen: 0 = Not at all Total LAMAR-7 score (0-4 normal; 5-9 mild; 10-14 moderate; 15-21 severe): 16 Source: Developed by Drs. Patricio Chirinos, Silvia Trivedi, Mahad Mckinney and colleagues, with an educational davy from [employer] LAMAR-7 Assessment Billing LAMAR-7 Assessment Tool: LAMAR-7 Assessment 25268 (currently seeing therapist) Physical exam (Primary Care) Vital Signs: Last Vital Signs Temp 97.1 F 05/11/24 14:30 Pulse 82 05/11/24 14:30 Resp 20 05/11/24 14:30 BP 114/82 05/11/24 14:30 Pulse Ox 97 05/11/24 14:30 Oxygen Delivery Method Room Air 05/11/24 14:30 Care Plan Goal for BP management: <130/80. At goal today. BMI result Body Mass Index 38.0 BMI Assessment/Plan discussion: High (Will increase Ozempic from 25 mg to 50 mg weekly. Patient to continue going to the gym and improving his diet and exercise regimen.) BMI High, discussed plan: lifestyle, weight reduction, dietary, physical activity and alcohol moderation Tobacco/Smoking Status: Tobacco use Status Tobacco use date assessed 05/11/24 05/11/24 14:33 Patient Tobacco Use Status Current someday Tobacco 05/11/24 14:48 Tobacco use type Cigar 05/11/24 14:41 e-Cigarette/Vaping Use Never Used 05/11/24 14:41 PHQ-9: PHQ-9 Score PHQ-9: Total score 14 05/11/24 14:50 Depression Screening Interpretation: Positive Depression Screening Follow-up: Existing condition (Patient see's a therapist does not need any referral or medications at this time. ) Thrive Assessment: Date of Thrive Assessment Date Thrive assessed 05/11/24 05/11/24 14:33 Currently or been in a relationship where the following occur: No concerns reported Results AMB Hemoglobin A1c AMB Hemoglobin A1c 6.8 % Last Edit by Nery Clarke CMA on 05/11/24 14:52 Results Reviewed Results Reviewed: Laboratory Last Values Hgb A1c (Clinic) 6.8 % (4.0-6.0) H 05/11/24 14:50 Coding Level of Care Code Est Pt Level 4 (57493) Complex EM visit Add On G2211 Diagnoses Right knee pain M25.561 Type 2 diabetes mellitus with hemoglobin A1c goal of less than 7.0% E11.9 Chronic pain of left knee M25.562; G89.29 Chronicity: chronic Heat rash L74.0 History of depression Z86.59 History of alcohol dependence F10.21 Low vitamin D level R79.89 Obesity (BMI 30-39.9) E66.9 Additional Codes PHQ-9 - 04273 - PHQ-9 Billing: Yes ([id number]) LAMAR-7 Assessment Billing - LAMAR-7 Assessment Tool: LAMAR-7 Assessment 82452 ([id number]) Assessment & Plan Assessment & Plan (1) Right knee pain: Code(s): M25.561 - Pain in right knee Category: Medical Plan: order outpatient right knee x-ray and refer to orthopedic. Condition is chronic and stable continue to monitor. (2) Type 2 diabetes mellitus with hemoglobin A1c goal of less than 7.0%: Code(s): E11.9 - Type 2 diabetes mellitus without complications Category: Medical Plan: Diabetes management Plan includes continuing metformin 500 mg b.i.d.. Continuing Jardiance 25 mg daily. Increasing Ozempic from 25 mg weekly to 50 mg weekly. A1c level go is less than 7.0. A1c level today at goal at 6.8. Condition is chronic and stable continue to monitor with current treatment regimen. (3) Left knee pain: Code(s): M25.562 - Pain in left knee Category: Medical Qualifiers: Chronicity: chronic Qualified Code(s): M25.562 - Pain in left knee; G89.29 - Other chronic pain Plan: Seen by ortho in past had MRI revealed osteoarthritis. Condition is chronic and stable continue to monitor. 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 Condition is chronic and stable continue to monitor. (5) History of depression: Code(s): Z86.59 - Personal history of other mental and behavioral disorders Category: Medical Plan: Continue visits with Therapist. Condition is chronic and stable continue to monitor. (6) History of alcohol dependence: Code(s): F10.21 - Alcohol dependence, in remission Category: Medical Plan: Patient decreasing alcohol consumption. Patient does not feel that he needs treatment at this time for alcohol. He denies any withdrawal symptoms. Condition is chronic and stable continue to monitor. (7) Low vitamin D level: Code(s): R79.89 - Other specified abnormal findings of blood chemistry Category: Medical Plan: Will recheck at next visit. Patient currently on vitamin-D supplements 50 mcg daily. Condition is chronic and stable continue to monitor (8) Obesity (BMI 30-39.9): Code(s): E66.9 - Obesity, unspecified Category: Medical Plan: Patient currently going to the gym and exercising daily trying to improve his diet regimen as well. Currently on Ozempic for diabetes will increase Ozempic dose from 25 mg to 50 mg. Condition is chronic and stable continue to monitor. Plan Plan Patient was informed and verbally consented to the use of an ambient scribe for clinic note documentation during this visit. 1. Alcohol Use Disorder Patient plans to sustain reduced consumption independently. 2. Osteoarthritis In Left Knee Ongoing symptom management with no change from baseline necessary. 3. Depression Current therapy engagements maintained without change in existing therapeutic interventions. 4. Right Knee Pain Plan includes right knee x-ray to investigate pain etiology with potential referral to orthopedics pending results. 5. Diabetes management Plan includes continuing metformin 500 mg b.i.d.. Continuing Jardiance 25 mg daily. Increasing Ozempic from 25 mg weekly to 50 mg weekly. A1c level go is less than 7.0. A1c level today at goal at 6.8. Orders: Orders Vitamin B12 and Folate Today Z00.00 - Encounter for general adult medical examination without abnormal findings Vitamin B1 Today Z00.00 - Encounter for general adult medical examination without abnormal findings Comprehensive [place]. Panel Fast Today Z00.00 - Encounter for general adult medical examination without abnormal findings TSH reflex Free T4 Today Z00.00 - Encounter for general adult medical examination without abnormal findings Microalbumin, Random (w Creat) Today E11.9 - Type 2 diabetes mellitus without complications AMB Hemoglobin A1c Today E11.9 - Type 2 diabetes mellitus without complications PSA,Total (Free>4and<10) Today Z00.00 - Encounter for general adult medical examination without abnormal findings Magnesium Today Z00.00 - Encounter for general adult medical examination without abnormal findings Vitamin D 25-OH Total Today Z00.00 - Encounter for general adult medical examination without abnormal findings XR knee RT 4V Today M25.561 - Pain in right knee Referrals Gastroenterology Referral Z12.11 - Encounter for screening for malignant neoplasm of colon Orthopedics Referral M25.561 - Pain in right knee Medications: Changed From semaglutide (Ozempic) 0.25 mg (0.368 mL) subcut QWEEK 3 mL 1RF To semaglutide (Ozempic) 0.5 mg (0.736 mL) subcut QWEEK 3 mL 1RF Refilled empagliflozin (Jardiance) 25 mg PO DAILY 90 tabs 1RF clotrimazole 1% (Antifungal (clotrimazole)) 1 appl topical BID 2 weeks PRN 90 grams 3RF rash L74.0 - Miliaria rubra epinephrine (EpiPen) 0.3 mg (0.3 mL) IM Q4H PRN 2 ea 0RF anaphylaxis Patient Instructions: Patient Instructions - Begin Ozempic at 0.5 mg weekly to support diabetes management, balance with diet and exercise. - Continue daily Jardiance and Metformin as prescribed. - Use Clotrimazole cream for heat-related skin rash as needed. - Follow up with Gastroenterology for GI assessment. - Ensure blood work and x-ray imaging are completed as discussed. - Maintain therapy sessions for mental health support. - Moderate alcohol intake, aiming to continue reducing frequency. - Attend scheduled annual exam and complete lab work prior to the visit. - Report any new or worsening symptoms promptly. Scribe Plan - Not visible on output: History of Present Illness The patient is a 43-year-old male presenting for a follow-up regarding Type 2 Diabetes Mellitus. His diabetes management has included Jardiance and Metformin, with recent introductions to Ozempic biweekly. Needle aversion has inhibited optimal dosing of Ozempic. The patient's diabetes has been generally well managed, but a lapse in medication adherence was noted due to a nearly three-month break from Jardiance. Comorbid conditions include depression, alcohol use, and intermittent heat rash, managed with appropriate medication. Depression is particularly relevant given recent bereavement experiences, but ongoing therapy has provided some stability. Alcohol use is notably reduced from previous levels, though consistent consumption continues. Social determinants play a role, with the patient residing with his father, suggesting substantial mutual support crucial in recent emotional and familial challenges. Occupational history, exercise, and challenging life events have also influenced the medical approach. Social History - Resides with father, mutual caregiving relationship - History of past employment discussed (unverified) - Reduced alcohol consumption over time, currently not notably high - Engages in occasional exercise (unverified frequency/extent) - Has experienced recent bereavements affecting mental health Review of Systems - Constitutional: Denies significant weight loss or gain - Cardiovascular: Denies leg swelling aside from occasional sock tightness - Skin: Reports recurring heat rash exacerbated by sweating Physical Exam Appearance: Alert. Oriented X3. No acute distress. Head: Normal external exam. Normocephalic. Atraumatic. Eyes: Pupils are equal, round, and reactive to light. Extraocular movements intact. Conjunctiva and sclera normal. Eyelids normal. Ears: External auditory canal normal. Tympanic membranes normal. Throat: Pharynx normal. Uvula midline. Moist mucous membranes. Neck: Normal inspection. Neck supple. Full range of motion. No adenopathy. Thyroid Normal. No meningeal signs. No neck mass noted. Cardiovascular: Normal heart rate and rhythm. Heart sound normal. No murmurs noted. Pulses normal throughout. Respiratory: No respiratory distress. Painless inspiration. Breath sounds normal. No wheezes/rales/rhonchi noted. Chest nontender. No accessory muscle usage noted or decreased air movement noted. Abdomen: Soft and nontender. Bowel sounds normal in all 4 quadrants. No distention noted. No organomegaly noted. No visible injury noted. Back: No costovertebral angle tenderness. Full range of motion noted. Skin: Skin warm and dry. Normal skin color. Normal skin turgor. No rashes/lesions/lacerations noted. Extremities: No lower extremity edema. Extremities exhibit normal range of motion. Extremities nontender. Neuro: Oriented X 3. No motor deficit. No sensory deficit. Reflexes normal. Results - Labs: A1c result at 6.8% - Tests: Pending CBC, CMP, Lipid panel, PSA, Vitamin D, Magnesium, and thyroid panels Plan Patient was informed and verbally consented to the use of an ambient scribe for clinic note documentation during this visit. 1. Alcohol Use Disorder Patient plans to sustain reduced consumption independently. 2. Osteoarthritis In Left Knee Ongoing symptom management with no change from baseline necessary. 3. Depression Current therapy engagements maintained without change in existing therapeutic interventions. 4. Right Knee Pain Plan includes right knee x-ray to investigate pain etiology with potential referral to orthopedics pending results. 5. Diabetes management Plan includes continuing metformin 500 mg b.i.d.. Continuing Jardiance 25 mg daily. Increasing Ozempic from 25 mg weekly to 50 mg weekly. A1c level go is less than 7.0. A1c level today at goal at 6.8. Discussion Notes I discussed with the patient the importance of adhering to the Ozempic dosing regimen to optimize diabetes control and support potential weight loss. We reviewed the patient's ongoing management of depression, ensured current therapeutic support was adequate, and addressed efforts to limit alcohol consumption. In addition, I referred him to Gastroenterology for abnormal bowel movements post-gallbladder surgery, and we discussed beginning colon cancer screening soon given his age. Laboratory evaluations were reviewed, and adjustments to ongoing diabetes care were planned. Patient instructions and follow-up appointments were confirmed. Patient Instructions - Begin Ozempic at 0.5 mg weekly to support diabetes management, balance with diet and exercise. - Continue daily Jardiance and Metformin as prescribed. - Use Clotrimazole cream for heat-related skin rash as needed. - Follow up with Gastroenterology for GI assessment. - Ensure blood work and x-ray imaging are completed as discussed. - Maintain therapy sessions for mental health support. - Moderate alcohol intake, aiming to continue reducing frequency. - Attend scheduled annual exam and complete lab work prior to the visit. - Report any new or worsening symptoms promptly.
--- OUTSIDE RECORDS SUMMARY | 2024-05-11 17:44 | XMS_ITS | Patient Health Record ---
Author Organization [facility] Janet Kothari Address [address] [place] [address] Care Team Providers Care Statistical Secretary Name Role Phone Adam Braytik Primary Care Provider Emeterio Sharp Unavailable [phone] Mercedes Alcantara Unavailable Unavailable Allergies Allergen (clinical drug ingredient) Drug/Non Drug Allergy documented on EMR Reaction Allergy Type Onset Date Status Bee Sting Unknown Allergy Active Reason For Referral No Information Medications Medication SIG (Take, Route, Frequency, Duration) Notes Start Date End Date Status Vitamin D3 50 MCG (1999 UT) Oral for 90 Days Active metFORMIN HCl ER 500 MG Oral for 90 Days Active Cyclobenzaprine HCl 5 MG Oral for 10 Days Active Extra Depth Orthopedic Shoes (1 Pair) with Customized Heat Molded Multidensity Innersoles (3 Pair) as directed Dx: NIDDM (E11.9), Hammertoe Foot Deformity (M20.41,M20.42), Preulcerative Skin Lesion(s) (L85.1) 03/12/2023 Active Ibuprofen 600 MG Oral for 7 Days Active Celecoxib 200 MG Oral for 30 Days Active Social History Tobacco Use: Social History Observation Description Date Details (start date - stop date) Current Smoker NA - NA Tobacco Use/Smoking Question Answer Notes Are you a: current smoker Alcohol Screen Question Answer Notes Did you have a drink containing alcohol in the p ast year? Yes Points 0 Interpretation Negative Tobacco use other than smoking: Question Answer Notes Are you an other tobacco user? No Problems Problem Type SNOMED Code ICD Code Onset Dates Problem Status W/U Status Risk Notes Problem Acquired hammer toe of right foot (638948981204910 5) Other hammer toe(s) (acquired), right foot (M20.41) Active confirmed Problem Acquired hammer toe of left foot (157826374107825 3) Other hammer toe(s) (acquired), left foot (M20.42) Active confirmed Problem Type 2 diabetes mellitus without complication (843218061) Type 2 diabetes mellitus without complication (E11.9) Active confirmed Encounters Encounter Location Date Provider Diagnosis [facility] [address] [address] 03[facility]10[facility] [address] 03/13/2024 Emeterio Sharp Plan Of Treatment Pending Test Test Name Order Date X ray : Foot, left 3V 03/12/2023 X ray : Foot, right 3V 03/12/2023 Insurance Providers Payer Name Payer Address Payer Phone Subscriber Number Group Number Insured Name Patient Relationship to Insured Coverage Start Date Coverage End Date [employer] [address] [place] [address] [id number] Ivan Coles Self - patient is the insured Medical (General) History Medical History History ICD Code Arthritis Back,Hip,and Knee pain covid-19 Diabetic gall bladder Surgical History Surgery Date(Month/Year) Gall bladder removal rotator cuff tear repair Tooth extraction
--- OUTSIDE RECORDS SUMMARY | 2024-05-11 17:45 | XMS_ITS ---
Author Organization [facility] Address [address] [place] [address] Care Team Providers Care Microwave Technician Name Role Phone KatarinaKhurram Primary Care Provider Emeterio Sharp [phone] Mercedes Alcantara Unavailable REASON FOR VISIT cx 03/14/24 appt Encounters Encounter Location Date Provider Diagnosis [facility] [address] [place] [address] 03/13/2024 Emeterio Sharp Plan Of Treatment No Information Progress Notes * Ivan COLES DDOB: [birth year] (43 yo M)Acc No.[id number]:03/13/2024 Patient:?Ivan COLES :1980???Age:43 Y???Sex:Male Address:[address] [place] [place], [address] * true * Date:? Generated for Patriciai alex/Adrian/eTransmitting on:?05/11/2024 05:44 PM EST
--- OUTSIDE RECORDS SUMMARY | 2024-05-11 17:45 | XMS_ITS ---
Author Organization [facility] Address [address] [place] [address] Care Team Providers Care Client Delivery Manager Name Role Phone Khurram Bray Primary Care Provider Emeterio Sharp Unavailable [phone] Mercedes Alcantara Unavailable Unavailable Encounters Encounter Location Date Provider Diagnosis [facility] [address] [place] [address] 03/14/2024 Emeterio Sharp Plan Of Treatment No Information Progress Notes * Ivan COLES DDOB: [birth year] (43 yo M)Acc No.[id number]:03/14/2024 Progress Note Patient:GuadalupeBORASabino Ivan Neto Provider:?Emeterio Sharp DPM :1980???Age:43 Y???Sex:Male Jaison e:03/14/2024 Address:[address] [place] [address] [place] Pcp:Khurram Bray Subjective: * Chief Complaints: * ??? * Medical History:? Objective: * Vitals:? Assessment: Plan: * Treatment: * Images: * The named appointment provid er may or may not be the originator of this progress note, and it is not deemed complete until electronically signed by the appointment provider. Sign off status: Pending * Provider:?Emeterio Sharp DPM Date:?2024 Generated for Gopi Ayersg/Krish on:?05/11/2024 05:44 PM EST
--- OUTSIDE RECORDS SUMMARY | 2024-05-11 17:45 | XMS_ITS ---
Author Organization [facility] Address [address] [place] [address] Care Team Providers Care Administrative Office Specialist Name Role Phone KatarinaKhurram Primary Care Provider [phone] Emeterio Sharp [phone] Mercedes Alcantara Unavailable Unavailable REASON FOR VISIT ADA Balance Encounters Encounter Location Date Provider Diagnosis [facility] [address] [place] [address] 03/10/2024 Emeterio Sharp Plan Of Treatment No Information Progress Notes * Ivan COLES DDOB: [birth year] (43 yo M)Acc No.[id number]:03/10/2024 Patient:?Ivan COLES :1980???Age:43 Y???Sex:Male Address:[address] [place] [address] [place], [address] * true * Date:? Generated for Printi alex/Adrian/eTransmitting on:?05/11/2024 05:44 PM EST
== END 2024-05-11 15:17 | disposition home or self-care (01) ==
PROVIDERS: PCP Internal Medicine; Visit Provider Physician Assistant Medical
DX: E11.9 Type 2 diabetes mellitus without complications (principal)

== ENCOUNTER → 2024-05-11 14:25 | Outpatient (BNVA) | payer OTHER, SELFPAY | PROVIDERS: PCP Internal Medicine; Visit Provider Physician Assistant Medical | DX: M25.561 Pain in right knee (principal); E11.9 Type 2 diabetes mellitus without complications; G89.29 Other chronic pain; M25.562 Pain in left knee; L74.0 Miliaria rubra; F10.21 Alcohol dependence, in remission; E55.9 Vitamin D deficiency, unspecified; E66.9 Obesity, unspecified; Z68.38 Body mass index [BMI] 38.0-38.9, adult; M17.12 Unilateral primary osteoarthritis, left knee; Z86.59 Personal history of other mental and behavioral disorders; Z79.84 Long term (current) use of oral hypoglycemic drugs; Z79.85 Long-term (current) use of injectable non-insulin antidiabetic drugs; Z79.899 Other long term (current) drug therapy | CPT/HCPCS: 83036; 96127 ==

== ENCOUNTER 2024-06-01 09:31 | Outpatient (REF) | payer OTHER, SELFPAY ==
[2024-06-01 10:53] LABS: Hematocrit 46.6 % (42.0-52.0); Hemoglobin 15.9 g/dl (14.0-18.0); Mean Corpuscular HGB Conc 34.1 g/dl (31.0-36.0); Mean Corpuscular Hemoglobin 29.7 pg (27.0-33.0); Mean Corpuscular Volume 86.9 fL (80.0-98.0); Mean Platelet Volume 11.1 fL (9.4-12.4); Platelet Count 298 X10*3/uL (160-400); Red Blood Count 5.36 X10*6/uL (4.60-5.80); Red Cell Distribution Width 12.5 % (11.0-16.0); White Blood Count 8.4 X10*3/uL (4.8-10.8)
[2024-06-01 11:35] LABS: Alanine Aminotransferase 35 U/L (0-40); Albumin Level 4.3 g/dL (3.5-5.0); Alkaline Phosphatase 108 U/L (39-117); Anion Gap 11 (12-20); Aspartate Amino Transferase 22 U/L (5-37); Bilirubin Direct 0.3 mg/dL (0.0-0.5); Bilirubin Total 0.9 mg/dL (0.0-1.0); Blood Urea Nitrogen 16 mg/dL (9-16); Calcium 9.4 mg/dL (8.4-10.2); Carbon Dioxide 26 mmol/L (22-29); Chloride 106 mmol/L (96-108); Cholesterol 168 mg/dL (<200); Estimated Glomerular Filt Rate > 60; Glucose Fasting 113 mg/dL (60-99); HDL Cholesterol 31 mg/dL (>40); LDL Cholesterol Calculated 108 mg/dL (<100); Magnesium 1.9 mg/dL (1.6-2.6); PSA,Total (Free>4and<10) 0.38 ng/mL (0.00-4.00); Potassium 3.6 mmol/L (3.3-5.1); Sodium 139 mmol/L (135-145); TSH reflex Free T4 1.65 uIU/mL (0.32-4.0); Total Protein 7.5 g/dL (6.5-8.0); Triglycerides 149 mg/dL (<150); Vitamin D 25-OH Total 23.2 ng/mL (>30)
[2024-06-01 11:45] LABS: Folate 3.6 ng/mL (> or = 4.0); Vitamin B12 535 pg/mL (200-900)
[2024-06-02 09:55] LABS: Appearance Urine Cloudy; Color Urine Dark Yellow; Glucose Urine UA >=1000 mg/dL (Negative); Leukocyte Esterase Urine Small (1+) (Negative); Nitrite Urine Negative (Negative); Specific Gravity - Urine >= 1.030 (1.005-1.025); UMIC TRIGGER UA YES; Urine Blood Negative (Negative); Urine Ketones Trace mg/dL (Negative); Urine Protein Negative (Neg-Trace)
[2024-06-02 10:01] LABS: Bacteria Urine None Seen (None Seen); Hyaline Casts Urine 0-2 /LPF (0-2); RBC Urine 0-2 /HPF (0-2); WBC Urine >50 /HPF (0-5)
[2024-06-02 10:17] LABS: Creatinine Urine 123.74 mg/dL; Microalbum/Creatinine Ratio Ur 9.6 ug/mg cr (<30)
[2024-06-09 11:33] LABS: Vitamin B1 <6 nmol/L (8-30)
== END 2024-06-01 09:32 | disposition home or self-care (01) ==
LOC: HO.LAB 09:31
PROVIDERS: Absent Provider Physician Assistant Medical; PCP Internal Medicine; Visit Provider Internal Medicine
DX: Z00.00 Encounter for general adult medical examination without abnormal findings (principal); Z86.59 Personal history of other mental and behavioral disorders; Z13.29 Encounter for screening for other suspected endocrine disorder; E11.9 Type 2 diabetes mellitus without complications
CPT/HCPCS: 36415; 80053; 80061; 80076; 81001; 82043; 82248; 82306; 82570; 82607; 82746; 83735; 84153; 84425; 84443; 85027

== ENCOUNTER 2024-06-02 09:01 | Outpatient (REF) | payer OTHER, SELFPAY ==
--- NOTE | ~2024-06-02 | XR_ITS ---
EXAMINATION: XR KNEE, RIGHT CLINICAL INFORMATION: M25.561 - Pain in right knee COMPARISON: February 16, 2022. TECHNIQUE: Four views of the right knee. FINDINGS: No acute cortical disruption or malalignment. No lytic or blastic lesions. No suprapatellar bursa joint effusion. There is preservation of the joint spaces. XR/XR knee RT 4V IMPRESSION: No acute fracture or dislocation. Stable. Electronically signed by: Aime Calvin MD 06/02/2024 09:39 AM EDT
== END 2024-06-02 09:02 | disposition home or self-care (01) ==
LOC: HO.XRAY 09:01
PROVIDERS: PCP Physician Assistant Medical; Visit Provider Physician Assistant Medical
DX: M25.561 Pain in right knee (principal)
CPT/HCPCS: 73564

== ENCOUNTER → 2024-06-02 09:05 | Outpatient (BNV) | payer OTHER, SELFPAY | PROVIDERS: PCP Physician Assistant Medical; Visit Provider Radiology Diagnostic Radiology | DX: M25.561 Pain in right knee (principal) | CPT/HCPCS: 73564 ==

== ENCOUNTER 2024-07-12 12:41 | Outpatient (AMB) | payer OTHER, SELFPAY ==
--- NOTE | 2024-07-12 12:58 | A.OFFVIS_ITS ---
Vital Signs 07/12/24 13:04 Height 6 ft Weight 280 lb BMI 38.0 Intake Visit Reasons: New prob- Right knee pain Intake Note: Ivan is a 43 year old male who presents today for an evaluation of right knee pain. Patient reports his pain has been present for a while that has recently gotten worse the past few months. Patient states he hit his knee on a cart while he was at work. His pain is intermittent however when his pain is present it is constant. His pain is located at he medial and lateral aspect of knee. His knee is tender to the touch at the lateral side. Finds mild relief with Advil or Motrin. Allergies bee pollen Allergy (Intermediate, Verified 07/12/24 13:00) Hives dulaglutide [From [facility]] Allergy (Intermediate, Verified 07/12/24 13:00) Vomiting Medication List - Last Reconciled 07/12/24 by Deborah Cervantes PA-C blood sugar diagnostic (FreeStyle Lite Strips) test daily blood-glucose meter (FreeStyle Lite Meter kit) test daily celecoxib (Celebrex) 200 mg PO BID 30 days cholecalciferol (vitamin D3) 50 mcg PO DAILY clotrimazole 1% (Antifungal (clotrimazole)) 1 appl topical BID PRN 2 weeks empagliflozin (Jardiance) 25 mg PO DAILY epinephrine (Auvi-Q) 0.3 mg (0.3 mL) intramuscularly every 4 hours As Needed for anaphylaxis folic acid 0.4 mg PO DAILY lancets (FreeStyle Lancets) test daily metformin ER 500 mg PO BID semaglutide 1 mg (0.75 mL) subcut QWEEK HPI HPI New prob- Right knee pain: Details: 43 yo male presents to the office today for right knee pain. he denies direct inury. C/o pain along the lateral aspect of the patella and joint line. Pain with stairs and increased activity. No current treatment to date. [facility] Medical History (Updated 07/12/24 @ 13:13 by Deborah Cervantes PA-C) Folic acid deficiency Vitamin D deficiency History of alcohol dependence Type 2 diabetes mellitus with hemoglobin A1c goal of less than 7.0% Right knee pain History of chest pain Encounter to establish care Surgical History History of left knee surgery Hx of tooth extraction History of rotator cuff surgery History of cholecystectomy Family History Mother Lung cancer COPD (chronic obstructive pulmonary disease) Father Diabetes COPD (chronic obstructive pulmonary disease) Other Substance use disorder Social History Housing: House Alcohol intake: current Alcohol intake frequency: a few times a month Alcohol type: beer Comment: NO COUNTS NEEDED Patient Tobacco Use Status: Current someday Tobacco user Tobacco use type: Cigar e-Cigarette/Vaping Use: Never Used Second Hand Smoke Exposure: No Substance Use Type: Other service: No Current occupational status: employed Current occupation: [employer] Cognitive needs: No Hearing needs: No Vision needs: Yes (glasses) Review of Systems Const All systems reviewed & are unremarkable except as noted in HPI and below Physical Exam Vital Signs: BMI result Body Mass Index 38.0 Const General: cooperative and no acute distress Orientation/consciousness: patient oriented x3 Resp Effort & Inspection: normal respiratory effort and able to speak in complete sentences Cardio Peripheral pulses: Peripheral pulses 2+ throughout Neuro General: patient oriented x3 Extrem Other: Right knee skin intact, no erythema or joint effusion. Tenderness along the me dial joint line. ROM full with crepitus. Negative steinmans. No ligamentous laxity. NVI. Office Procedures AMB Joint Injection/Aspiration Joint Injection/Aspiration Primary Site: right knee Prep: site was prepped using aseptic technique, ethochloride spray was applied and injection warnings given Injected: 40 mg of, DepoMedrol, with 8 mL of, 1% plain lidocaine and in the joint Approach Used: anterolateral Procedure: The patient tolerated the procedure well and there was some relief with the local anesthesia Coding 11580 - Glenohumeral/Tronchanteric Bursa/Intraarticular Procedure code (CPT) selection complete Results Reviewed Results Reviewed: X-rays of the right knee obtained in the office today and reviewed by me show mild medial compartment OA Assessment & Plan Assessment & Plan (1) Patellofemoral disorders, right knee: Code(s): M22.2X1 - Patellofemoral disorders, right knee Category: Medical Plan: We discussed options today, which include steroid injection. The patient did consent to move forward with the injection, which was tolerated well.? I recommended rest, ice and elevation and OTC antiinflammatories prn for discomfort. If symptoms persist over the next 6-8 weeks, they will contact our office, otherwise, prn We also discussed their diabetes and the effect the steroid can have on thier blood glucose levels; therefore, they will continue to monitor these very closely over the next 72 hours Orders: Orders PT Evaluation and Treatment Today M22.2X1 - Patellofemoral disorders, right knee XR knee standing BI Today M25.561 - Pain in right knee, M25.562 - Pain in left knee Coding Level of Care Code Est Pt Level 3 (39676) Complex EM visit Add On G2211 Diagnoses Patellofemoral disorders, right knee M22.2X1 CPT Codes Coding - Joint 7: 25918 - Glenohumeral/Tronchanteric Bursa/Intraarticular ([id number])
[2024-07-12 13:04] VITALS: BMI 38.0
--- OUTSIDE RECORDS SUMMARY | 2024-07-12 13:44 | XMS_ITS ---
Author Organization [facility] Address [address] [place] [address] Care Team Providers Care Process Tank Tender Name Role Phone Khurram Bray Primary Care Provider Emeterio Sharp Unavailable [phone] Mercedes Alcantara Unavailable Unavailable Encounters Encounter Location Date Provider Diagnosis [facility] [address] [place] [address] 03/14/2024 Emeterio Sharp Plan Of Treatment No Information Progress Notes * Ivan COLES DDOB: [birth year] (43 yo M)Acc No.[id number]:03/14/2024 Progress Note Patient:GuadalupeBORASabino Ivan Neto Provider:?Emeterio Sharp DPM :1980???Age:43 Y???Sex:Male Jaison e:03/14/2024 Address:[address] [place] [address] [place] Pcp:Khurram Bray Subjective: * Chief Complaints: * ??? * Medical History:? Objective: * Vitals:? Assessment: Plan: * Treatment: * Images: * The named appointment provid er may or may not be the originator of this progress note, and it is not deemed complete until electronically signed by the appointment provider. Sign off status: Pending * Provider:?Emeterio Sharp DPM Date:?2024 Generated for Gopi Ayersg/Blossomitting on:?07/12/2024 01:44 PM EDT
--- OUTSIDE RECORDS SUMMARY | 2024-07-12 13:44 | XMS_ITS | Patient Health Record ---
Author Organization [facility] Janet Kothari Address [address] [facility] [place] [address] Care Team Providers Care Mental Telepathist Name Role Phone Adam Braytik Primary Care Provider Emeterio Sharp Unavailable [phone] Mercedes Alcantara Unavailable Unavailable Allergies Allergen (clinical [...] Problem Acquired hammer toe of right foot (716420233758030 5) Other hammer toe(s) (acquired), right foot (M20.41) Active confirmed Problem Acquired hammer toe of left foot (652299352074964 3) Other hammer toe(s) (acquired), left foot (M20.42) Active confirmed Problem Type 2 diabetes mellitus without complication (361919565) Type 2 diabetes mellitus without complication (E11.9) Active confirmed Encounters Encounter Location Date Provider Diagnosis [facility] [address] [address] 03/10/2024 [facility] [address] 03/13/2024 Emeterio Sharp Plan Of Treatment Pending Test Test Name Order Date X ray : Foot, left 3V 03/12/2023 X ray : Foot, right 3V 03/12/2023 Insurance Providers Payer Name Payer Address Payer Phone Subscriber Number Group Number Insured Name Patient Relationship to Insured Coverage Start Date Coverage End Date A[address] [address] [place] [address] [id number] Ivan Coles Self - patient is the insured Medical (General) History Medical History History ICD Code Arthritis Back,Hip,and Knee pain covid-19 Diabetic gall bladder Surgical History Surgery Date(Month/Year) Gall bladder removal rotator cuff tear repair Tooth extraction
--- OUTSIDE RECORDS SUMMARY | 2024-07-12 13:44 | XMS_ITS ---
Author Organization [facility] Address [address] [place] [address] Care Team Providers Care Patternmaker Helper Name Role Phone KatarinaKhurram Primary Care Provider Emeterio Sharp [phone] Mercedes Alcantara Unavailable Unavailable REASON FOR VISIT ADA Balance Encounters Encounter Location Date Provider Diagnosis [facility] [address] [place] [address] 03/10/2024 Emeterio Sharp Plan Of Treatment No Information Progress Notes * Iavn COLES DDOB: [birth year] (43 yo M)Acc No.[id number]:03/10/2024 Patient:?Ivan COLES :1980???Age:43 Y???Sex:Male Address:[address] [place] [address] [place], [address] * true * Date:? Generated for Printi ng/Blaineg/eTransmitting on:?07/12/2024 01:44 PM EDT
--- OUTSIDE RECORDS SUMMARY | 2024-07-12 13:45 | XMS_ITS ---
Author Organization [facility] Address [address] [place] [address] Care Team Providers Care Solid Waste Technician Name Role Phone KatarinaKhurram Primary Care Provider Emeterio Sharp [phone] Mercedes Alcantara Unavailable REASON FOR VISIT cx 03/14/24 appt Encounters Encounter Location Date Provider Diagnosis [facility] [address] [place] [address] 03/13/2024 Emeterio Sharp Plan Of Treatment No Information Progress Notes * Ivan COLES DDOB: [birth year] (43 yo M)Acc No.[id number]:03/13/2024 Patient:?Ivan COLES :1980???Age:43 Y???Sex:Male Address:[address] [place], [address] * true * Date:? Generated for Printi alex/Adrian/eTransmitting on:?07/12/2024 01:44 PM EDT
== END 2024-07-12 13:30 | disposition home or self-care (01) ==
LOC: HO.HOS 12:42
PROVIDERS: PCP Internal Medicine; Visit Provider Physician Assistant
DX: M22.2X1 Patellofemoral disorders, right knee (principal)
CPT/HCPCS: 20610; 99213

== ENCOUNTER → 2024-07-12 12:44 | Outpatient (BNV) | payer OTHER, SELFPAY | PROVIDERS: Visit Provider Radiology Diagnostic Radiology | DX: M25.561 Pain in right knee (principal) | CPT/HCPCS: 73565 ==

== ENCOUNTER 2024-07-12 15:21 | Outpatient (REF) | payer OTHER, SELFPAY ==
--- NOTE | ~2024-07-12 | XR_ITS ---
EXAMINATION: XR KNEE AP STANDING CLINICAL INFORMATION: M25.561 - Pain in right knee COMPARISON: Correlated to right knee x-ray dated June 02, 2024 and left knee dated February 16, 2022. TECHNIQUE: AP bilateral standing view of the knees was obtained. FINDINGS: Mild joint space narrowing involving the medial compartment with mild articular surface sclerosis of the medial tibial plateau, both knees. No acute cortical disruption. No gross malalignment. No lytic or blastic lesions. XR/XR knee standing BI IMPRESSION: Mild medial compartment osteoarthrosis. Electronically signed by: Aime Calvin MD 07/12/2024 01:24 PM EDT
--- OUTSIDE RECORDS SUMMARY | 2024-07-13 15:56 | XMS_ITS ---
Author Organization [facility] Address [address] [place] [address] Care Team Providers Care Film Librarian Name Role Phone Khurram Bray Primary Care Provider Emeterio Sharp Unavailable [phone] Mercedes Alcantara Unavailable Unavailable Encounters Encounter Location Date Provider Diagnosis [facility] [address] [place] [address] 03/14/2024 Emeterio Sharp Plan Of Treatment No Information Progress Notes * Ivan COLES DDOB: [birth year] (43 yo M)Acc No.[id number]:03/14/2024 Progress Note Patient:KENNETHHERMELINDASabino Ivan Neto Provider:?Emeterio Sharp DPM :1980???Age:43 Y???Sex:Male Jaison e:03/14/2024 Address:[address] [place] [address] [place] Pcp:Khurram Bray Subjective: * Chief Complaints: * ??? * Medical History:? Objective: * Vitals:? Assessment: Plan: * Treatment: * Images: * The named appointment provid er may or may not be the originator of this progress note, and it is not deemed complete until electronically signed by the appointment provider. Sign off status: Pending * Provider:?Emeterio Sharp DPM Date:?2024 Generated for Gopi Ayersg/Krish on:?07/13/2024 03:56 PM EDT
--- OUTSIDE RECORDS SUMMARY | 2024-07-13 15:56 | XMS_ITS ---
Author Organization [facility] Address [address] [place] [address] Care Team Providers Care Sheriffs Officer Name Role Phone KatarinaKhurram Primary Care Provider [phone] Emeterio Sharp [phone] Mercedes Alcantara Unavailable REASON FOR VISIT cx 03/14/24 appt Encounters Encounter Location Date Provider Diagnosis [facility] [address] [place] [address] 03/13/2024 Emeterio Sharp Plan Of Treatment No Information Progress Notes * Ivan COLES DDOB: [birth year] (43 yo M)Acc No.[id number]:03/13/2024 Patient:?Ivan COLES :1980???Age:43 Y???Sex:Male Address:[address] [place], [address] * true * Date:? Generated for Printi ng/Faluisag/eTransmitting on:?07/13/2024 03:56 PM EDT
--- OUTSIDE RECORDS SUMMARY | 2024-07-13 15:56 | XMS_ITS | Patient Health Record ---
Author Organization [facility] Janet Kothari Address [address] [facility] [place] [address] Care Team Providers Care Criminal Lawyer Name Role Phone Adam Braytik Primary Care Provider [phone] Emeterio Sharp Unavailable [phone] Mercedes Alcantara Unavailable Unavailable Allergies Allergen (clinical [...] Problem Acquired hammer toe of right foot (005514920374446 5) Other hammer toe(s) (acquired), right foot (M20.41) Active confirmed Problem Acquired hammer toe of left foot (594691915658074 3) Other hammer toe(s) (acquired), left foot (M20.42) Active confirmed Problem Type 2 diabetes mellitus without complication (067227151) Type 2 diabetes mellitus without complication (E11.9) Active confirmed Encounters Encounter Location Date Provider Diagnosis [facility] [address] [address] 03/10/2024 [facility] [address] 03/13/2024 Emeterio Sharp Plan Of Treatment Pending Test Test Name Order Date X ray : Foot, left 3V 03/12/2023 X ray : Foot, right 3V 03/12/2023 Insurance Providers Payer Name Payer Address Payer Phone Subscriber Number Group Number Insured Name Patient Relationship to Insured Coverage Start Date Coverage End Date Aetna [address] [place] [address] [id number] Ivan Coles Self - patient is the insured Medical (General) History Medical History History ICD Code Arthritis Back,Hip,and Knee pain covid-19 Diabetic gall bladder Surgical History Surgery Date(Month/Year) Gall bladder removal rotator cuff tear repair Tooth extraction
--- OUTSIDE RECORDS SUMMARY | 2024-07-13 15:56 | XMS_ITS ---
Author Organization [facility] Address [address] [place] [address] Care Team Providers Care Boat Builder And Repairer Name Role Phone KatarinaKhurram Primary Care Provider [phone] Emeterio Sharp [phone] Mercedes Alcantara Unavailable Unavailable REASON FOR VISIT ADA Balance Encounters Encounter Location Date Provider Diagnosis [facility] [address] [place] [address] 03/10/2024 Emeterio Sharp Plan Of Treatment No Information Progress Notes * Ivan COLES DDOB: [birth year] (43 yo M)Acc No.[id number]:03/10/2024 Patient:?Ivan COLES :1980???Age:43 Y???Sex:Male Address:[address] [place] [address] [place], [address] * true * Date:? Generated for Printi ng/Faluisag/eTransmitting on:?07/13/2024 03:56 PM EDT
== END 2024-07-12 15:22 | disposition home or self-care (01) ==
LOC: HO.HOSX 15:21
PROVIDERS: Visit Provider Physician Assistant
DX: M22.2X1 Patellofemoral disorders, right knee (principal); M25.562 Pain in left knee
CPT/HCPCS: 20610; 73565; J1010; J2003

== ENCOUNTER 2024-09-06 14:00 | Outpatient (RCR) | payer OTHER, SELFPAY ==
--- NOTE | 2024-08-14 11:51 | MHC.PT.EP ---
[facility] [place] [facility] [place] [facility] [place] [facility] [address] Hayden [place] [address] [phone] F: [phone] F: [phone] F: [phone] F: [phone] Physical Therapy Plan of Care Date of Evaluation: 08/14/24 Date of Surgery: Diagnosis: This is a 43 yo male presenting to skilled PT with a script for patellofemoral disorders, R knee. Assessment: This is a 43 yo male presenting to skilled PT with a script for patellofemoral disorders, R knee. Patient with ongoing R knee pain for over a year, insidious onset, pain increasing as the time goes on (of note the L is painful too but has already been/is being addressed). Pain is located medial and lateral patella, achy and sharp in nature. Pain is constant. Pain increases with standing, walking, bending/squatting. Patient is being [facility]. Per last note We discussed options today, which include steroid injection. The patient did consent to move forward with the injection, which was tolerated well.?I recommended rest, ice and elevation and OTC anti-inflammatories prn for discomfort. If symptoms persist over the next 6-8 weeks, they will contact our office, otherwise, prn. He reports that cortisone was not helpful. He occasionally uses a brace, ice, heat, Celebrex and Advil for pain relief. Assessment reveals pain that ranges from up to a 4/10 at the worst. Patient demos decreased knee and hip ROM, strength of knee and hip, TTP at medial joint line and impaired posture with lateral trunk shift, valgus, forward head and rounded shoulders. Based on functional limitations, impaired QOL and pain tolerance patient is a good candidate for skilled PT 2x/wk for 4wks. Frequency and Duration: The patient will be seen 2x/wk for 4wks Short Term Goals: (in 2 weeks) Patient will demo good understanding and performance of quad set in multiple different planes without cues from PT Patient will be I in HEP Carpet Journeyman Goals: (in 4 weeks) Patient will report 75% improvement in balance and strength of LLE as evidenced by reports of improved stability, decreased crepitus and overall improved pain Patient will improve LEFs by 10 points Patient will demo 5/5 hip and knee strength in all directions Patient will demo proper squat and lift techniques without increase in pain Treatment Plan: Modalities to reduce pain, spasms and effusion. Manual therapy to restore motion and function. Therapeutic exercise to improve strength and flexibility. Neuromuscular re-education for posture and balance. Therapeutic activities to return to functional activities of daily living. Electronically signed by: Bianca Tyler PT Please sign and return to therapist. Thank you for your referral.
--- NOTE | 2024-10-04 07:05 | MHC.PT.DC ---
[facility] [place] [facility] [place] [facility] [place] [facility] [address] Hayden [place] [address] [phone] F: [phone] F: [phone] F: [phone] F: [phone] Physical Therapy Discharge Report Diagnosis: This is a 43 yo male presenting to skilled PT with a script for patellofemoral disorders, R knee. Date of Surgery: Date of Evaluation: 08/14/24 Date of Discharge: 10/04/24 Treatments to Date: 7 Cancellations to Date: 0 No Shows to Date: 0 Discharge Status: Independent with HEP Patient Elected to Stop Recommend MD Follow-up Discharge Summary: 09/06: Patient has come to 4 weeks of PT with good carryover. He continues to demo 5/10 pain at the knee with noted instability/buckling at times. Pain located medial knee and inferior patella. He demos WFL ROM and good strength however pain continues. At this time I recommend following up with MD for further management and updated POC. Educated him to continue HEP emiliano tolerance. Electronically signed by: Bianca Tyler PT Please sign and return to therapist. Thank you for your referral.
== END 2024-10-04 07:05 | disposition home or self-care (01) ==
LOC: HO.PTCHIC 14:00
PROVIDERS: PCP Internal Medicine; Visit Provider Physician Assistant
DX: M22.2X1 Patellofemoral disorders, right knee (principal)
CPT/HCPCS: 97110; 97161

== ENCOUNTER 2025-01-09 15:23 | Outpatient (AMB) | payer OTHER, SELFPAY ==
--- OUTSIDE RECORDS SUMMARY | 2024-03-14 11:00 | XMS_ITS ---
Author Organization [facility] Address [address] [place] [address] Care Team Providers Care Mystery Shopper Name Role Phone Khurram Bray Primary Care Provider [phone] Emeterio Sharp Unavailable [phone] Mercedes Alcantara Unavailable Unavailable Encounters Encounter Location Date Provider Diagnosis [facility] [address] [place] [address] 03/14/2024 Emeterio Sharp Plan Of Treatment No Information Progress Notes * SANKET Ivan DDOB: [birth year] (44 yo M)Acc No.[id number]:03/14/2024 Progress Note Patient: Ivan PAZ Provider: Yusef Sharp DPM :1980 A ge:43 Y S ex:Male Date:03/14/2024 Address:[address] [place] [address] [place] Pcp:Khurram Bray Subjective: * Chief Complaints: * * Medical History: Objective: * Vitals: Assessment: Plan: * Treatment: * Images: * The named appointment provid er may or may not be the originator of this progress note, and it is not deemed complete until electronically signed by the appointment provider. Sign off status: Pending * Provider: Yusef Sharp DPM Date: 0 03/14/2024 Generated for Gopi johnson/Adrian/eTransmitting on: 03/11/2024 06:11 PM EST
--- NOTE | 2025-01-09 15:28 | A.OFFVIS_ITS ---
Vital Signs 3 01/09/25 15:30 Height 6 ft Weight 277 lb 12.519 oz BMI 37.7 BP 132/75 Blood Pressure Location Lt brachial Position Sitting Pulse 71 Intake Visit Reasons: colo screen Intake Note: Ivan presents in the office as a colonoscopy screening. CC: States that he has some diarrhea due to having no gall bladder. Artists' Booking Representative Required: No Allergies bee pollen Allergy (Intermediate, Verified 01/09/25 15:30) Hives dulaglutide (From Trulicity) Allergy (Intermediate, Verified 01/09/25 15:30) Vomiting HPI HPI colo screen: Details: 43-year-old male here for preprocedural meeting to discuss a screening colonoscopy. He is referred by Ale Gonzalez. PMX Obesity Diabetes Arthritis of the left knee Plantar fasciitis Alcohol dependence * SURGICAL HISTORY Left knee surgery Tooth extraction Rotator cuff repair Cholecystectomy * ALLERGIES Bees Trulicity * [employer] LABS: Laboratory Tests 06/01/24 09:51 WBC 8.4 Hgb 15.9 Hct 46.6 Plt Count 298 Estimated GFR > 60 Magnesium 1.9 Total Bilirubin 0.9 Direct Bilirubin 0.3 AST 22 ALT 35 Alkaline Phosphatase 108 TSH 1.65 TODAY'S VISIT First colonoscopy? : Yes Bowel or upper GI problems: Diarrhea s/p cholestyramine with intermittent dyspepsia and nausea. His father suffers similar symptoms after also having his gallbladder out. Cardiac or respiratory problems: No Anesthesia and sedation problems:No Infectious disease problems: No Family history:None known. [facility] Medical History Folic acid deficiency Vitamin D deficiency History of alcohol dependence Type 2 diabetes mellitus with hemoglobin A1c goal of less than 7.0% Right knee pain History of chest pain Encounter to establish care Surgical History History of left knee surgery Hx of tooth extraction History of rotator cuff surgery History of cholecystectomy Family History Mother Lung cancer COPD (chronic obstructive pulmonary disease) Father Diabetes COPD (chronic obstructive pulmonary disease) Other Substance use disorder Social History Housing: House Alcohol intake: current Alcohol intake frequency: a few times a month Alcohol type: beer Comment: NO COUNTS NEEDED Patient Tobacco Use Status: Current someday Tobacco user Tobacco use type: Cigar e-Cigarette/Vaping Use: Never Used Second Hand Smoke Exposure: No Substance Use Type: Other service: No Current occupational status: employed 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 Cognitive needs: No Hearing needs: No Vision needs: Yes (glasses) Review of Systems Const Denies fatigue, Denies fever(s), Denies night sweats, Denies poor appetite and Denies weight loss ENT Reports Normal hearing present, Denies dental pain, Denies dysphagia, Denies hearing loss, Denies mouth pain, Denies odynophagia, Denies throat swelling, Denies tongue swelling and Reports other (Dentition adequate) Card Reports no additional complaints Resp Reports no additional complaints GI Details: Denies abdominal pain, Denies melena, Denies bloating, Denies hematochezia, Denies constipation, Denies GI cramping, Denies dysphagia, Denies excessive flatus, Denies early satiety, Reports dyspepsia, Denies heartburn, Reports diarrhea, Denies nausea, Denies odynophagia, Denies vomiting and Denies hematemesis Skin/Breast Denies pruritus, Denies lesions, Denies rash and Denies jaundice Neuro Reports Normal hearing present and Denies Abnormal speech present Endo Denies fatigue Aller/Immun Denies throat swelling and Denies tongue swelling Physical Exam Vital Signs: Last Vital Signs Pulse 71 01/09/25 15:30 BP 132/75 01/09/25 15:30 BMI result Body Mass Index 37.7 Const General: cooperative, no acute distress, well developed and well groomed Nutritional Appearance: well nourished and obese Orientation/consciousness: oriented to person, oriented to place and oriented to time Limitations: No language barrier HEENT Head: Yes normocephalic and Yes atraumatic Eyes General: appearance normal, both eyes and all related structures Pupils: Equal, round and reactive pupils present Neck Neck: Yes normal visual inspection and Yes no lymphadenopathy Thyroid: Thyroid normal Resp Effort & Inspection: normal respiratory effort and able to speak in complete sentences Auscultation: clear to auscultation bilaterally Cardio Rate: regular rate Rhythm: regular rhythm Heart sounds: Normal, physiologic split S2 sound present Peripheral pulses: radial pulses present and posterior tibial pulses present GI Inspection: No distended, Yes Abdominal panniculus present and Yes obesity Palpation (GI): Soft to palpation, nontender, no guarding, not rigid and No hepatosplenomegaly present Percussion: Yes normal to percussion Auscultation: normal bowel sounds Rectal Exam - Male: Yes deferred Abdomen image: 2 1. surgical scars 2. 3. Skin General skin exam: no rashes or lesions noted, turgor normal, skin not dry, no jaundice, No spider nevi and no striae Rashes: no rashes Nails: normal Neuro General: oriented to person, oriented to place and oriented to time Cranial nerves: Yes Equal, round and reactive pupils present and Yes Normal hearing present Speech: No Abnormal speech present Extrem General: Yes normal to inspection, No clubbing, No cyanosis and No edema Psych Appearance: grossly normal and well kempt Mental Status: mental status grossly normal Speech and movement: Normal speech and movement present Affect: normal affect Attitude: cooperative Thought process: Normal thought process present and not confabulating Thought content: Normal thought content present Insight: Fair insight present (Psych) and Limited insight present (Psych) Judgement: Fair judgement present (Psych) and Limited judgement present (Psych) Assessment & Plan Assessment & Plan (1) Pre-op examination: Code(s): Z01.818 - Encounter for other preprocedural examination Category: Medical (2) Post-cholecystectomy syndrome: Code(s): K91.5 - Postcholecystectomy syndrome Category: Medical Plan First colonoscopy? : Yes Bowel or upper GI problems: Diarrhea s/p cholestyramine with intermittent dyspepsia and nausea. His father suffers similar symptoms after also having his gallbladder out. Cardiac or respiratory problems: No Anesthesia and sedation problems:No Infectious disease problems: No Family history:None known. Orders: Referrals 2 GI Procedure Notification Z01.818 - Encounter for other preprocedural examination Medications: New 2 peg 3350-electrolytes 236-22.74-6.74 -5.86 gram (Golytely) until fecal effluent is clear; do not exceed a total volume of 2,000 mL 240 mL PO Q10M 4,000 mL 0RF 1 day Z12.11 - Encounter for screening for malignant neoplasm of colon bisacodyl (Dulcolax (bisacodyl)) 10 mg (2 x 5 mg) PO BEDTIME 4 tabs 0RF 2 days cholestyramine (Cholestyramine Light) administer w/meal; avoid other meds within 1hr before or 4-6hr after dose 4 grams PO BID 210 grams 6RF K91.5 - Postcholecystectomy syndrome Coding Level of Care Code New Pt Level 3 (06450) Diagnoses Pre-op examination Z01.818 Post-cholecystectomy syndrome K91.5
[2025-01-09 15:30] VITALS: BP 132/75; PULSE 71; BMI 37.7
--- OUTSIDE RECORDS SUMMARY | 2025-01-09 18:11 | XMS_ITS ---
Author Organization Unknown ENCOUNTERS Encounter Performer Location Date Diagnosis Diagnosis Status Emergency [address] [address] [id number] [facility] *Note: Encounters from your own facility or health system may be excluded. Allergies, Adverse Reactions, Alerts Allergen Type Severity Identification Date bee pollen drug allergy 3 [id number] Medications Name Date Quantity Days Supplied [facility] Number
--- OUTSIDE RECORDS SUMMARY | 2025-01-09 18:11 | XMS_ITS | Patient Health Record ---
Author Organization [facility] Janet Kothari Address [address] [facility] [place] [address] Care Team Providers Care Unix Analyst Name Role Phone KatarinaKhurram Primary Care Provider Emeterio Sharp Unavailable [phone] Mercedes Alcantara Unavailable Unavailable Allergies Allergen (clinical drug ingredient) Drug/Non Drug Allergy documented on EMR Reaction Allergy Type Onset Date Status Bee Sting Unknown Allergy Active Reason For Referral No Information Medications Medication SIG (Take, Route, Frequency, Duration) Notes Start Date End Date Status Vitamin D3 50 MCG (1999) Oral; Duration: 90 Days Active metFORMIN HCl ER 500 MG Oral; Duration: 90 Days Active Cyclobenzaprine HCl 5 MG Oral; Duration: 10 Days Active Extra Depth Orthopedic Shoes (1 Pair) with Customized Heat Molded Multidensity Innersoles (3 Pair) as directed Dx: NIDDM (E11.9), Hammertoe Foot Deformity (M20.41,M20.42), Preulcerative Skin Lesion(s) (L85.1) 03/12/2023 Active Ibuprofen 600 MG Oral; Duration: 7 Days Active Celecoxib 200 MG Oral; Duration: 30 Days Active Social History Tobacco Use: [...] Problem Acquired hammer toe of right foot (494225042966665 5) Other hammer toe(s) (acquired), right foot (M20.41) Active confirmed Problem Acquired hammer toe of left foot (834515692036409 3) Other hammer toe(s) (acquired), left foot (M20.42) Active confirmed Problem Type II diabetes mellitus without complication (735387164) Type 2 diabetes mellitus without complication (E11.9) Active confirmed Encounters Encounter Location Date Provider Diagnosis [facility] [address] [address] 03/10/2024 Emeterio Sharp [facility] [address] 03/13/2024 Emeterio Sharp Plan Of Treatment Pending Test Test Name Order Date X ray : Foot, left 3V 03/12/2023 X ray : Foot, right 3V 03/12/2023 Insurance Providers Payer Name Payer Address Payer Phone Subscriber Number Group Number Insured Name Patient Relationship to Insured Coverage Start Date Coverage End Date [employer] [address] [place] [address] [phone] [id number] Ivan Coles Self - patient is the insured Medical (General) History Medical History History ICD Code Arthritis Back,Hip,and Knee pain covid-19 Diabetic gall bladder Surgical History Surgery Date(Month/Year) Gall bladder removal rotator cuff tear repair Tooth extraction
== END 2025-01-09 16:17 | disposition home or self-care (01) ==
LOC: HO.HGI 15:24
PROVIDERS: PCP Internal Medicine; Visit Provider Nurse Practitioner
DX: Z01.818 Encounter for other preprocedural examination (principal); Z12.11 Encounter for screening for malignant neoplasm of colon; K91.5 Postcholecystectomy syndrome
CPT/HCPCS: S0285

== ENCOUNTER 2025-01-10 09:47 | Outpatient (AMB) | payer OTHER, SELFPAY ==
--- OUTSIDE RECORDS SUMMARY | 2024-03-14 11:00 | XMS_ITS ---
Author Organization [facility] Address [address] [place] [address] Care Team Providers Care Media Director Name Role Phone Khurram Bray Primary Care Provider Emeterio Sharp Unavailable [phone] Mercedes Alcantara Unavailable Unavailable Encounters Encounter Location Date Provider Diagnosis [facility] [address] [place] [address] 03/14/2024 Emeterio Sharp Plan Of Treatment No Information Progress Notes * SANKET Ivan DDOB: [birth year] (44 yo M)Acc No.[id number]:03/14/2024 Progress Note Patient: Ivan PAZ Provider: Yusef Sharp DPM :1980 A ge:43 Y S ex:Male Date:03/14/2024 Address:[address] [place] [address] [place] Pcp:Khurram Bray Subjective: * Chief Complaints: * [...] 0 03/14/2024 Generated for Gopi johnson/Adrian/eTransmitting on: 03/12/2024 11:06 AM EST
--- NOTE | 2025-01-10 09:50 | A.OFFPC_ITS ---
Vital Signs 01/10/25 09:53 Height 6 ft Weight 280 lb 6 oz BMI 38.0 BP 110/78 Blood Pressure Location Lt brachial Position Sitting Pulse 79 Pulse Source Pulse Oximeter Temp 97.3 F Temp Source Temporal Artery Scan Pulse Oximetry (%) 98 Oxygen Delivery Method Room Air Intake Visit Reasons: discuss extention paperwork Intake Note: Patient is here to follow up on Discuss extension paperwork. Junior Account Executive Required: No Intermediate School Teacher: Not Required per policy Accompanied by: Self / Same As Patient Allergies bee pollen Allergy (Intermediate, Verified 01/10/25 09:53) Hives dulaglutide (From Trulicity) Allergy (Intermediate, Verified 01/10/25 09:53) Vomiting Tobacco use date assessed: 01/10/25 Dental Screening Dental Screen Date: 05/11/24 [facility] Medical History Folic acid deficiency Vitamin D deficiency History of alcohol dependence Type 2 diabetes mellitus with hemoglobin A1c goal of less than 7.0% Right knee pain History of chest pain Encounter to establish care Surgical History History of left knee surgery Hx of tooth extraction History of rotator cuff surgery History of cholecystectomy Family History Mother Lung cancer COPD (chronic obstructive pulmonary disease) Father Diabetes COPD (chronic obstructive pulmonary disease) Other Substance use disorder Social History Housing: House Alcohol intake: current Alcohol intake frequency: a few times a month Alcohol type: beer Comment: NO COUNTS NEEDED Patient Tobacco Use Status: Current someday Tobacco user Tobacco use type: Cigar (2-3 a week) e-Cigarette/Vaping Use: Never Used Second Hand Smoke Exposure: Yes Substance Use Type: Other service: No Current occupational status: employed 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 1. Little interest or pleasure in doing things: not at all 2. Feeling down, depressed, or hopeless: not at all 3. Trouble falling or staying asleep, or sleeping too much: several days 4. Feeling tired or having little energy: several days 5. Poor appetite or overeating: not at all 6. Feeling bad about yourself - or that you are a failure or have let yourself or your family down: not at all 7. Trouble concentrating on things, such as reading the newspaper or watching television: not at all 8. Moving or speaking so slowly that other people could have noticed. Or the opposite - being so fidgety or restless that you have been moving around a lot more than usual: not at all 9. Thoughts that you would be better off or of hurting yourself in some way: not at all Total score: 2 Depression Screening Interpretation: Positive Depression Screening Done: Yes Source: Developed by Drs. Patricio Chirinos, Silvia Trivedi, Mahad Mckinney and colleagues, with an educational davy from [employer]. Thrive Questionnaire Date Thrive assessed: 01/10/25 I am a: Patient What is your living situation today?: I have a steady place to live Within the past 12 months, did the food you bought not last and you didn't have the money to get more?: I choose not to answer this question Within the past 12 months, did you worry whether your food would run out before you got money to buy more?: I choose not to answer this question Do you have trouble paying for medicines?: I choose not to answer this question Do you have trouble getting transportation to medical appointments?: No Do you have trouble paying your heating and electricity bill?: I choose not to answer this question Do you have trouble taking care of your child, family member or friend?: I choose not to answer this question Do you have trouble with day-to-day activities such as bathing, preparing meals, shopping, managing finances, etc.?: I choose not to answer this question Are you currently unemployed and looking for a job?: No THRIVE Score: 0 LAMAR-7 AMB Questionnaire LAMAR-7 Date LAMAR - 7 assessed: 05/11/24 Source: Developed by Drs. Patricio Chirinos, Silvia Trivedi, Mahad Mckinney and colleagues, with an educational davy from [employer]. Physical exam (Primary Care) Vital Signs: Last Vital Signs Temp 97.3 F 01/10/25 09:53 Pulse 79 01/10/25 09:53 BP 110/78 01/10/25 09:53 Pulse Ox 98 01/10/25 09:53 Oxygen Delivery Method Room Air 01/10/25 09:53 BMI result Body Mass Index 38.0 Tobacco/Smoking Status: Tobacco use Status Tobacco use date assessed 01/10/25 01/10/25 10:04 Patient Tobacco Use Status Current someday Tobacco 01/10/25 10:04 Tobacco use type Cigar (2-3 a week) 01/10/25 10:04 e-Cigarette/Vaping Use Never Used 01/10/25 10:04 PHQ-9: PHQ-9 Score PHQ-9: Total score 2 01/10/25 10:04 Depression Screening Interpretation: Positive Thrive Assessment: Date of Thrive Assessment Date Thrive assessed 01/10/25 01/10/25 10:04 Results AMB Hemoglobin A1c AMB Hemoglobin A1c 7.6 % Last Edit by RUSTAM King on 01/10/25 10:09 Results Reviewed Results Reviewed: Laboratory Last Values Hgb A1c (Clinic) 7.6 % (4.0-6.0) H 01/10/25 09:50 Coding Level of Care Code Est Pt Level 3 (15153) Complex EM visit Add On G2211 Diagnoses Right knee pain M25.561 Assessment & Plan Assessment & Plan (1) Right knee pain: Code(s): M25.561 - Pain in right knee Category: Medical Plan: History of Present Illness - The patient is a 44-year-old male presenting to extend his work restrictions due to bilateral knee arthritis. - He has been on modified duty since September, and his current restrictions on February 05. - His condition is characterized by significant knee pain that worsens after a couple of hours of work, particularly with bending and squatting required for his job at [employer]. - He has been to physical therapy as directed by orthopedics but has not had a follow-up with them since. - Regarding other health issues, the patient monitors his blood sugar, which has been steady between 105-115 mg/dL with occasional spikes and drops. - He reports taking his medications, including a semaglutide injection for weight loss, but has experienced some weight gain recently, with a weight over 272 lbs. - He is not followed by an internet marketing assistant and recently had an appointment with a wash mill operator. 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 - Functional Status: His job involves squatting and bending, which exacerbates his knee pain. - He is able to lift up to 50 pounds. - He is working 35 hours per week over 5 days, with shifts limited to under 8 hours. Review of Systems - Constitutional: Reports recent weight gain. - Musculoskeletal: Reports pain in both knees due to arthritis, which worsens after about two hours of work and is exacerbated by bending and squatting. - Neurological: Reports a tingling sensation in his legs if he sits for too long. Physical Exam General: Cooperative and healthy appearing Nutritional Appearance: Well nourished Orientation/consciousness: Patient oriented x3 Limitations: No limitations Head: Normal to inspection General: Appearance normal, both eyes and all related structures Neck: Normal visual inspection Chest: Normal palpation of entire chest wall Respiratory: Normal respiratory effort Neurology: Patient oriented x3 Results - Labs: Patient self-reports blood glucose levels are steady between 105-115 mg/dL, with some spikes and drops. Plan - Work restriction paperwork will be completed to extend modified duty until the end of April. - Restrictions include being unable to squat and working a maximum of 35 hours per week, with daily shifts not to exceed 8 hours. - The patient is cleared to lift up to 50 pounds. - Patient advised to contact his orthopedics specialist for a follow-up appointment regarding his ongoing knee issues. - Continue current medication regimen, including semaglutide, for diabetes and weight management. Discussion Notes I addressed the patient's request for an extension of his work restrictions due to bilateral knee arthritis. I have completed the necessary paperwork to extend these restrictions until the end of April, specifying an inability to squat and limiting his work schedule to 35 hours per week and 8 hours per day. I advised him to follow up with his exercise equipment specialist for further management of his knee condition. We briefly discussed his blood sugar control and weight, noting his medication adherence. I instructed him to provide the completed form to the checkout staff. Patient Instructions - Your work restrictions have been extended until the end of April. - Your restrictions include: no squatting, working a maximum of 35 hours per week, and working no more than 8 hours per day. - Please contact your exercise equipment specialist's office to schedule a follow-up appointment for your knees. - Continue taking all your medications as prescribed, including your weekly injection. - Give the form I completed to the staff at the checkout desk. Orders: Orders AMB Hemoglobin A1c Today E11.9 - Type 2 diabetes mellitus without complications Influenza [id number] Immunization Today Z23 - Encounter for immunization Medications: New Fluarix [id number] (PF) (flu vac ts (6mos up)-PF) 0.5 mL IM ONCE 0.5 mL 0RF NS Z23 - Encounter for immunization
[2025-01-10 09:53] VITALS: BP 110/78; PULSE 79; TEMP 36.3; O2SAT 98; BMI 38.0
--- OUTSIDE RECORDS SUMMARY | 2025-01-10 11:06 | XMS_ITS | Patient Health Record ---
Author Organization [facility] Janet Kothari Address [address] [facility] [place] [address] Care Team Providers Care Batch Roller Operator Name Role Phone KatarinaKhurram Primary Care Provider Emeterio Sharp Unavailable [phone] Mercedes Alcantara Unavailable Unavailable Allergies Allergen (clinical [...] Problem Acquired hammer toe of right foot (830771888197963 5) Other hammer toe(s) (acquired), right foot (M20.41) Active confirmed Problem Acquired hammer toe of left foot (440741789673443 3) Other hammer toe(s) (acquired), left foot (M20.42) Active confirmed Problem Type II diabetes mellitus without complication (411688958) Type 2 diabetes mellitus without complication (E11.9) Active confirmed Encounters Encounter Location Date Provider Diagnosis [facility] [address] [address] 03/10/2024 Emeterio Sharp [facility] [address] 03/13/2024 Emeterio Sharp Plan Of Treatment Pending Test Test Name Order Date X ray : Foot, left 3V 03/12/2023 X ray : Foot, right 3V 03/12/2023 Insurance Providers Payer Name Payer Address Payer Phone Subscriber Number Group Number Insured Name Patient Relationship to Insured Coverage Start Date Coverage End Date [employer] [address] [place] [address] [phone] [id number] Ivan Coles Self - patient is the insured Medical (General) History Medical History History ICD Code Arthritis Back,Hip,and Knee pain covid-19 Diabetic gall bladder Surgical History Surgery Date(Month/Year) Gall bladder removal rotator cuff tear repair Tooth extraction
--- OUTSIDE RECORDS SUMMARY | 2025-01-10 11:06 | XMS_ITS ---
Author Organization Unknown ENCOUNTERS Encounter Performer Location Date Diagnosis Diagnosis Status Emergency [address] [address] [id number] [facility] *Note: Encounters from your own facility or health system may be excluded. Allergies, Adverse Reactions, Alerts Allergen Type Severity Identification Date bee pollen drug allergy 3 [id number] Medications Name Date Quantity Days Supplied [facility] Number
== END 2025-01-10 10:50 | disposition home or self-care (01) ==
PROVIDERS: PCP Internal Medicine; Visit Provider Internal Medicine
DX: Z23 Encounter for immunization (principal); E11.9 Type 2 diabetes mellitus without complications; M25.561 Pain in right knee

== ENCOUNTER → 2025-01-10 09:47 | Outpatient (BNVA) | payer OTHER, SELFPAY | PROVIDERS: PCP Internal Medicine; Visit Provider Internal Medicine | DX: M17.0 Bilateral primary osteoarthritis of knee (principal); E11.9 Type 2 diabetes mellitus without complications; Z23 Encounter for immunization | CPT/HCPCS: 83036; 90471; 90656; 96127 ==